=== PATIENT | female | born 1940 | race Caucasian/White ===

== ENCOUNTER 2019-08-16 09:28 | Emergency (ER) | payer MEDICARE, BC, SELFPAY ==
[2019-08-16 09:42] VITALS: BP 146/94; PULSE 87; RESP 20; TEMP 36.7; O2SAT 93; BMI 44.1
--- NOTE | 2019-08-16 10:00 | ED_ITS ---
Entered by Qian Wallis, acting as scribe for Aug 16, 2019 09:28 HPI - SOB/Dyspnea General: Chief Complaint: Shortness of Breath/Dyspnea Stated Complaint: SWELLING IN LEGS AND FEET Time Seen by Provider: 08/16/19 09:58 Source: patient and family Mode of arrival: ambulatory Limitations: no limitations History of Present Illness: HPI Narrative: 78 yo female presents with bilateral leg swelling. pt states she is not short of breath. pt has to take lasik to help with edema. pt states it is worsening with exertion and sitting upright makes this better. pt denies any other symptoms at this time. Onset (ago): day(s) (today) Context: occurred during exertion Timing: constant and progressively worsening Severity: moderate Exacerbating factors: exertion Relieving factors: nothing Associated symptoms: Reports no associated symptoms Treatment prior to arrival: oxygen Related Data: Home oxygen amount: 4 liters (at home) PFS ED PFSH: Statuses (acute, chronic, etc) shown below reflect problem list status as previously entered and may not be historically accurate Social History Smoking and tobacco status: former smoker Course Vital Signs: Vital signs: Vital Signs Temperature 98.1 F 08/16/19 09:42 Pulse Rate 71 08/16/19 11:30 Respiratory Rate 16 08/16/19 11:30 Blood Pressure 139/70 08/16/19 11:30 Pulse Oximetry 97 08/16/19 11:30 MDM - SOB/Dyspnea Lab Data: Labs: Lab Results 08/16/19 08/16/19 Range/Units 10:25 10:25 WBC 16.5 H (4.0-10.0) 10^3/ uL RBC 4.39 (4.1-5.3) 10^6/u L Hgb 13.6 (11.5-15.3) g/dL Hct 41.9 (37.0-47.0) % MCV 95.4 (81-99) fL MCH 31.0 (28.0-34.0) pg MCHC 32.5 (30.0-36.0) g/dL RDW 11.5 L (12.1-15.1) % Plt Count 346 (130-400) 10^3/c mm MPV 10.4 (7.4-10.4) fL Neut % (Auto) 74.7 % Lymph % (Auto) 14.8 % [place] % (Auto) 7.5 % Eos % (Auto) 1.6 % Baso % (Auto) 0.5 % Neut # (Auto) 12.3 H (1.8-7.7) 10^3/u L Lymph # (Auto) 2.4 (0.8-4.8) 10^3/u L [place] # (Auto) 1.2 H (0.2-0.9) 10^3/u L Eos # (Auto) 0.3 (0.0-0.8) 10^3/u L Baso # (Auto) 0.1 (0.0-0.1) 10^3/u L Nucleated RBC % (a uto) 0 % Nucleated RBCs # 0.0 /100WBC Sodium 134 L (136-145) mmol/L Potassium 3.3 L (3.5-5.1) mmol/L Chloride 87 L (98-107) mmol/L Carbon Dioxide 36 H (22-29) mmol/L Anion Gap 14.3 (5-19) BUN 20 (8-23) mg/dL Creatinine 1.0 H (0.5-0.9) mg/dL Glucose 207 H (74-106) mg/dL Calcium 10.6 H (8.5-10.5) mg/dL Total Bilirubin 0.4 (0.15-1.2) mg/dL AST 18 (0-32) U/L ALT 6 (0-33) U/L Alkaline Phosphata se 62 (35-105) IU/L NT-Pro-B Natriuret Pep 67 (0-450) pg/mL Total Protein 7.9 (6.6-8.7) g/dL Albumin 4.3 (3.5-5.2) g/dL Globulin 3.6 (1.3-4.6) g/dL Discharge Plan Discharge Patient Disposition: Home, Self-Care Clinical Impression: Edema of both lower extremities due to peripheral venous insufficiency Condition: Stable Prescriptions: New Lasix 20 mg tablet 20 mg PO DAILY Qty: 7 RF: 0 potassium chloride 20 mEq tablet extended release 20 meq PO DAILY Qty: 7 RF: 0 No Action tramadol-acetaminophen 37.5-325 mg tablet 1 - 2 tab PO TID PRN (Reason: Pain) RF: 0 lisinopril 20 mg tablet 20 mg PO DAILY RF: 0 chlorthalidone 25 mg tablet 25 mg PO DAILY RF: 0 famotidine 20 mg tablet 20 mg PO BID RF: 0 levothyroxine [Synthroid] 200 mcg tablet 200 mcg PO DAILY RF: 0 rosuvastatin 10 mg tablet 10 mg PO DAILY RF: 0 Multiple Vitamins Tablet 1 tab PO DAILY RF: 0 vitamin E 1,000 unit Capsule 1,000 unit PO DAILY RF: 0 Vitamin B-12 1,000 mcg Tablet 1,000 mcg PO DAILY RF: 0 Aspir-81 81 mg Tablet,Delayed Release (Dr/Ec) 81 mg PO DAILY RF: 0 Tylenol Arthritis Pain 650 mg Tablet Extended Release 1,300 mg PO TID PRN (Reason: Pain) RF: 0 Calcium 500 500 mg calcium (1,250 mg) Tablet 500 mg PO DAILY RF: 0 Vitamin B-6 100 mg Tablet 50 mg PO DAILY RF: 0 Discharge Orders: Discharge Order (Routine); Ordered 08/16/19 Ordered By: Ulysses Vincent Referrals: Ruben Rodriguez MD [Family Provider] - Coding Level of Care Code 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
[2019-08-16 10:05] VITALS: BP 150/93; RESP 19; O2SAT 96
--- NOTE | 2019-08-16 10:10 | XR_ITS ---
WS: [id number] CHEST XRAY TECHNIQUE: Portable chest. CLINICAL INFORMATION: orthopnea COMPARISON: FINDINGS: Heart: Cardiomegaly. Aortic Calcification. Tortuous thoracic aorta. Lungs: Chronic emphysematous changes. No acute-appearing pulmonary infiltrates. Bones: Chronic healed left rib fractures with callus formation. Hypertrophic changes thoracic spine. XR/XR chest 1V portable [id number] IMPRESSION: 1. Cardiomegaly. 2. Chronic emphysematous changes. No acute pulmonary infiltrates.
[2019-08-16 10:33] LABS: Basophils # 0.1 10^3/uL (0.0-0.1); Basophils % 0.5 %; Eosinophils # 0.3 10^3/uL (0.0-0.8); Eosinophils % 1.6 %; Hematocrit 41.9 % (37.0-47.0); Hemoglobin 13.6 g/dL (11.5-15.3); Lymphocytes # 2.4 10^3/uL (0.8-4.8); Lymphocytes % 14.8 %; Mean Corpuscular HGB Conc 32.5 g/dL (30.0-36.0); Mean Corpuscular Volume 95.4 fL (81-99); Mean Platelet Volume 10.4 fL (7.4-10.4); Monocytes # 1.2 10^3/uL (0.2-0.9); Monocytes % 7.5 %; Neutrophils # 12.3 10^3/uL (1.8-7.7); Neutrophils % 74.7 %; Nucleated Red Blood Cells % 0 %; Platelet Count 346 10^3/cmm (130-400); Red Blood Count 4.39 10^6/uL (4.1-5.3); Red Cell Distribution Width 11.5 % (12.1-15.1); White Blood Count 16.5 10^3/uL (4.0-10.0)
[2019-08-16 11:00] LABS: Alanine Aminotransferase 6 U/L (0-33); Albumin Level 4.3 g/dL (3.5-5.2); Alkaline Phosphatase 62 IU/L (35-105); Anion Gap 14.3 (5-19); Aspartate Amino Transferase 18 U/L (0-32); Blood Urea Nitrogen 20 mg/dL (8-23); Calcium 10.6 mg/dL (8.5-10.5); Carbon Dioxide 36 mmol/L (22-29); Chloride 87 mmol/L (98-107); Globulin 3.6 g/dL (1.3-4.6); Glucose 207 mg/dL (74-106); NT Pro B Type Natriuretic Pept 67 pg/mL (0-450); Potassium 3.3 mmol/L (3.5-5.1); Sodium 134 mmol/L (136-145); Total Bilirubin 0.4 mg/dL (0.15-1.2); Total Protein 7.9 g/dL (6.6-8.7)
--- NOTE | 2019-08-16 11:09 | PC.NURSE ---
Patient resting quietly, denies any needs at this time. Updated on waiting for completion of labs.
[2019-08-16 11:10] VITALS: BP 135/67; PULSE 80; RESP 16; O2SAT 98
[2019-08-16 11:30] VITALS: BP 139/70; PULSE 71; RESP 16; O2SAT 97
[2019-08-16 12:27] VITALS: BP 139/70; PULSE 80; RESP 17; TEMP 36.9; O2SAT 97
== END 2019-08-16 12:00 | disposition home or self-care (01) ==
PROVIDERS: Emergency Provider Family Medicine; Family Provider Family Medicine
DX: R60.0 Localized edema (principal); I87.2 Venous insufficiency (chronic) (peripheral); Z79.82 Long term (current) use of aspirin; Z87.891 Personal history of nicotine dependence; Z99.81 Dependence on supplemental oxygen
CPT/HCPCS: 36415; 71045; 80053; 83880; 85025; 99282; 99284

== ENCOUNTER 2020-04-24 20:51 | Observation (INO) | payer MEDICARE, BC, SELFPAY ==
[2020-04-24 21:19] VITALS: BP 115/61; PULSE 96; RESP 18; TEMP 36.6; O2SAT 94; BMI 49.9
--- NOTE | 2020-04-24 21:19 | XRR_ITS ---
PROCEDURE INFORMATION: Exam: XR Pelvis Exam date and time: 04/24/2020 9:47 PM Age: 79 years old Clinical indication: Pain and injury or trauma; Fall; Blunt trauma (contusions or hematomas); Does not apply; Pelvic region; Pelvic pain; Injury date: 04/23/20 TECHNIQUE: Imaging protocol: XR pelvis. Views: 1 or 2 view. COMPARISON: No relevant prior studies available. FINDINGS: Bones/joints: Degenerative arthritis of both hips. Degenerative change of lower lumbar spine. No acute fracture visible. Soft tissues: Unremarkable. XR/XR pelvis 1-2V* [id number] IMPRESSION: No acute osseous abnormality.
--- NOTE | 2020-04-24 21:19 | XRR_ITS ---
PROCEDURE INFORMATION: Exam: XR Chest, 1 View Exam date and time: 04/24/2020 9:49 PM Age: 79 years old Clinical indication: Injury or trauma; Fall; Blunt trauma (contusions or hematomas); Injury date: 04/23/20; Prior surgery; Surgery type: Breast biopsy TECHNIQUE: Imaging protocol: XR of the chest Views: 1 view. COMPARISON: No relevant prior studies available. FINDINGS: Lungs: Unremarkable. No consolidation. Pleural space: Unremarkable. No pleural effusion. No pneumothorax. Heart/Mediastinum: Cardiomegaly. Vasculature: Calcified thoracic aorta. Bones/joints: Degenerative change of the spine. Degenerative change of both shoulders. XR/XR chest 1V portable [id number] IMPRESSION: No acute cardiopulmonary process.
--- NOTE | 2020-04-24 21:21 | ECG_ITS ---
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 Measurements Intervals [place] Rate: 87 P: 59 [place]: 159 QRS: 104 QRSD: 160 T: -50 QT: 371 QTc: 447 Interpretive Statements SINUS RHYTHM RIGHT AXIS DEVIATION [QRS AXIS > 100] RIGHT BUNDLE BRANCH BLOCK [120+ ms QRS DURATION, UPRIGHT V1, 40+ ms S IN I/aVL/V4/V5/V6] SEPTAL MYOCARDIAL INFARCTION , OF INDETERMINATE AGE [40+ ms Q WAVE IN V1/V2] MODERATE T-WAVE ABNORMALITY, CONSIDER LATERAL ISCHEMIA [-0.1+ mV T WAVE IN I/aVL/V5/V6] MODERATE T-WAVE ABNORMALITY, CONSIDER INFERIOR ISCHEMIA [-0.1+ mV T WAVE IN II/aVF] No previous ECG available for comparison Electronically Signed On 04-26-2020 20:36:59 CDT by Aaron Bruno M.D. [id number]
[2020-04-24 21:23] VITALS: BP 115/61; PULSE 82; RESP 20; O2SAT 97
[2020-04-24] MEDS: sodium chloride 0.9% 1,000 ML 100 ML IV (22:16)
[2020-04-24 22:21] LABS: Basophils # 0.1 10^3/uL (0.0-0.1); Basophils % 0.5 %; Eosinophils # 0.3 10^3/uL (0.0-0.8); Eosinophils % 1.5 %; Hematocrit 44.5 % (37.0-47.0); Hemoglobin 13.3 g/dL (11.5-15.3); Lymphocytes # 1.2 10^3/uL (0.8-4.8); Lymphocytes % 7.2 %; Mean Corpuscular HGB Conc 29.9 g/dL (30.0-36.0); Mean Corpuscular Hemoglobin 28.3 pg (28.0-34.0); Mean Corpuscular Volume 94.7 fL (81-99); Mean Platelet Volume 11.1 fL (7.4-10.4); Monocytes # 0.9 10^3/uL (0.2-0.9); Monocytes % 5.2 %; Neutrophils # 14.38 10^3/uL (1.8-7.7); Neutrophils % 84.7 %; Nucleated Red Blood Cells % 0 %; Platelet Count 315 10^3/cmm (130-400); Red Cell Distribution Width 13.9 % (12.1-15.1)
[2020-04-24 22:23] VITALS: BP 127/53; PULSE 84; RESP 18; O2SAT 98
[2020-04-24 22:25] LABS: Bilirubin Urine Neg (Negative); Blood Urine Neg (Negative); Glucose Urine UA Norm (Normal); Ketones Urine Negative (Negative); Leukocyte Esterase Urine Negative (Negative); Nitrate Urine Negative (Negative); Protein Urine 2+ (Negative); Urine Appearance Clear (CLEAR); Urine Color Yellow (Yellow); Urobilinogen Urine Norm (Negative); pH Urine 5 (5-7)
[2020-04-24 22:27] LABS: Add Urine Culture? No; Amorphous Sediment Urine 2+ /hpf; Bacteria Urine 1+ /hpf; Mucus Urine TRACE /hpf; RBC Urine 0-4 /hpf (0-2); Squamous Epithelial Cell Urine 0-4 /hpf (0-5); WBC Urine 0-4 /hpf (0-5)
[2020-04-24 22:35] LABS: Ketone (Acetest) Serum Negative (Negative)
[2020-04-24 22:36] LABS: Alanine Aminotransferase 10 U/L (0-33); Albumin Level 3.6 g/dL (3.5-5.2); Alkaline Phosphatase 58 IU/L (35-105); Anion Gap 11.9 (5-19); Aspartate Amino Transferase 18 U/L (0-32); Blood Urea Nitrogen 19 mg/dL (8-23); Calcium 9.2 mg/dL (8.5-10.5); Carbon Dioxide 37 mmol/L (22-29); Chloride 88 mmol/L (98-107); Creatine Phosphokinase 98 U/L (26-192); Globulin 3.2 g/dL (1.3-4.6); Glucose 149 mg/dL (65-115); Osmolality Calculated 281 mOsm/kg (285-295); Potassium 3.9 mmol/L (3.5-5.1); Sodium 133 mmol/L (136-145); Total Bilirubin 0.4 mg/dL (0.15-1.2); Total Protein 6.8 g/dL (6.6-8.7)
[2020-04-24 22:37] LABS: Lactic Sepsis W/Reflex 0.7 mmol/L (0.5-2.2); Troponin(5th) Baseline 93 ng/L (0-10)
--- NOTE | 2020-04-24 23:21 | ECG_ITS ---
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 Measurements Intervals [place] Rate: 82 P: 61 [place]: 167 QRS: 103 QRSD: 165 T: -48 QT: 394 QTc: 461 Interpretive Statements SINUS RHYTHM RIGHT AXIS DEVIATION [QRS AXIS > 100] RIGHT BUNDLE BRANCH BLOCK [120+ ms QRS DURATION, UPRIGHT V1, 40+ ms S IN I/aVL/V4/V5/V6] MODERATE T-WAVE ABNORMALITY, CONSIDER LATERAL ISCHEMIA [-0.1+ mV T WAVE IN I/aVL/V5/V6] MODERATE T-WAVE ABNORMALITY, CONSIDER INFERIOR ISCHEMIA [-0.1+ mV T WAVE IN II/aVF] Compared to ECG 04/24/2020 21:58:42 Myocardial infarct finding no longer present T-wave abnormality still present Possible ischemia still present Electronically Signed On 04-26-2020 20:54:57 CDT by Aaron Bruno M.D. [email or web address]
[2020-04-24 23:40] VITALS: BP 109/66; PULSE 86; O2SAT 98
--- NOTE | 2020-04-24 23:46 | P.HP_ITS ---
Providers/Chief Complaint Primary Care Provider: Ruben Rodriguez MD Chief Complaint: FALL History of Present Illness Deja Russell is a 79 year old female, who carries diagnosis of primary hypertension, sleep apnea, hypothyroidism, poor functional status, dependent on her for daily activities, came in after sustaining a fall at home. Patient is stating that mostly she requires chairlift to get up because her is also 79 years old and is not able to help her anymore. Last night her was not at home and she could not find chairlift. She struggled to get up when she was trying to go towards the bathroom, she was very upset and was trying to shields towards the bathroom when she tripped over, lost her balance and fell on the ground. Her returned and try to get her up but was unsuccessful hence EMS was called. She was sent to the hospital for further evaluation for investigation of her fall. Patient is denying chest pain, fever, nausea, vomiting, recent diarrhea, cough, seizure-like activities, syncope. She is leading a sedentary lifestyle. She was to go to the bathroom on her own out of fear of falling because of her balance issues. Diagnosis in the ER revealed leukocytosis, sodium 133, glucose 149, , troponin 93, EKG does not show any signs of ischemia or infarction, right bundle branch block with left posterior fascicular block pattern which is old, serum ketones negative, patient is stating that she is too weak to go home because her is not able to care for her at all, we do not have a source of such high troponin, I have requested D-dimer Review of Systems Const: Reports: body aches and fatigue; Denies: fever(s) or chills Eyes: Denies: change in vision ENMT: Denies: throat pain Card: Reports: pre-syncope and dyspnea on exertion; Denies: chest pain, swelling of feet/ankles, syncope or orthopnea Resp: Denies: dyspnea GI: Denies: abdominal pain, nausea or vomiting : Denies: flank pain Musc: Denies: neck pain Skin/Breast: Reports: lesions and changes in skin color Neuro: Reports: difficulty walking; Denies: headache(s) Psych: Reports: irritability; Denies: anxiety Endo: Denies: polyuria [place]/Lymph: Denies: easy bruising All/Imm: Denies: urticaria Medications/Allergies Home Medications Medication Instructions Recorded Confirmed Last Taken Type acetaminophen [Tylenol Arthritis 1,300 mg PO TID PRN 08/16/19 08/16/19 08/14/19 History Pain] aspirin [Aspir-81] 81 mg PO DAILY 08/16/19 08/16/19 08/15/19 History calcium carbonate [Calcium 500] 500 mg PO DAILY 08/16/19 08/16/19 08/16/19 History chlorthalidone 25 mg PO DAILY 08/16/19 08/16/19 08/16/19 History cyanocobalamin (vitamin B-12) 1,000 mcg PO DAILY 08/16/19 08/16/19 08/16/19 History [Vitamin B-12] famotidine 20 mg PO BID 08/16/19 08/16/19 08/16/19 History levothyroxine [Synthroid] 200 mcg PO DAILY 08/16/19 08/16/19 08/14/19 History lisinopril 20 mg PO DAILY 08/16/19 08/16/19 08/16/19 History multivitamin [Multiple Vitamins] 1 tab PO DAILY 08/16/19 08/16/19 08/16/19 History potassium chloride 20 meq PO DAILY #7 tab 08/16/19 Unknown Rx pyridoxine (vitamin B6) [Vitamin 50 mg PO DAILY 08/16/19 08/16/19 08/16/19 History B-6] rosuvastatin 10 mg PO DAILY 08/16/19 08/16/19 08/15/19 History tramadol-acetaminophen 1 - 2 tab PO TID PRN 08/16/19 08/16/19 08/16/19 06:00 History vitamin E 1,000 unit PO DAILY 08/16/19 08/16/19 08/16/19 History furosemide [Lasix] 20 mg PO DAILY 04/25/20 04/25/20 Unknown History Allergies Allergy/AdvReac Type Severity Reaction Status Date / Time Penicillins Allergy ALGY-Rash Verified 04/24/20 21:23 PFSH Acute PFSH: Medical History Congestive heart failure COPD (chronic obstructive pulmonary disease) CVA (cerebral vascular accident) Dyslipidemia Hypertension Hypothyroidism Irritable bowel syndrome Peptic ulcer disease Pulmonary hypertension Surgical History H/O total hysterectomy S/P breast biopsy S/P cholecystectomy Family History Other Mesothelioma Social History Smoking and tobacco status: former smoker Alcohol intake: never Substance/Drug Use: never Household members: spouse Housing: House Vitals/I&O/Wt Last Vital Signs Temp 97.9 F 04/24/20 21:19 Pulse 86 04/24/20 23:40 Resp 18 04/24/20 22:23 BP 109/66 04/24/20 23:40 Pulse Ox 98 04/24/20 23:40 Weight last 48 hrs Weight 136.078 kg Physical Exam Narrative: EXAM NARRATIVE: Cooperative elderly female Morbidly obese No active respiratory distress EOMI, PERRLA S1, S2 no tachycardia, Clinically looks dehydrated Skin is extremely dry, no active signs of fluid overload Skin wrinkling of lower extremities, Venous stasis dermatitis Abdomen distended, bowel sound present Lungs are clear to auscultation EOMI, PERRLA No neurological deficit Dry skin with poor hygiene Strength of lower extremities 3/5 as compared to 4/5 of lower extremities No focal deficit Appropriate mood and affect Urinary Catheter Management^: Jackson: Cath Placed During This Visit: yes Reason for Continuing Indwelling Catheter: Required Immobilization for Trauma or Surgery or Anesthesia Urinary Catheter Date of Insertion: 04/24/20 Urinary Catheter Time of Insertion: 21:46 Data : 04/24/20 22:07 04/24/20 22:07 A&P Assessment and plan (1) Generalized weakness: Status: Acute (2) Inability to walk: Status: Acute (3) Accident due to mechanical fall without injury: Status: Acute (4) Troponin level elevated: Status: Acute Additional A&P Information Mechanical fall Secondary to deconditioning, morbid obesity EKG did not show ischemic or infarctive changes, right bundle branch with left posterior fascicle block pattern Troponin 93, I do not have good reason for such a high troponin, will check D- dimer, serial troponin and EKG currently chest pain-free Inability to walk secondary to morbid obesity Patient is using chairlift in order to change positions, sedentary lifestyle, dependent on her for daily activities, she might benefit from home he alth services We will check B12 level and A1c Hypothyroidism: Continue levothyroxine 200 mcg, check TSH Mild hyponatremia which seems secondary to chlorthalidone Holding chlorthalidone for now along Lasix Patient is getting fluids resuscitation for clinical signs of dehydration DVT prophylaxis Lovenox Cardiac diet Full code Attestations Medical Necessity Statement*: Anticipating discharge in less than 48 hours, she will benefit from home health services for her physical deconditioning, her is not able to take care of her he is 81 years old Time Spent in Patient Care: (>than 50% of time spent in counselling and/or direct pt care on unit) . 50mins Coding Level of Care Code Acute Sharepoint Application Developer for Chg Fwd Diagnoses Generalized weakness R53.1 Inability to walk R26.2 Accident due to mechanical fall without injury W19.XXXA Troponin level elevated R77.8
--- NOTE | 2020-04-24 23:46 | W.ED.FALL ---
HPI - Fall General: Chief Complaint: Fall Stated Complaint: FALL Time Seen by Provider: 04/24/20 21:19 Source: patient, family and EMS Mode of arrival: EMS Limitations: no limitations History of Present Illness: HPI Narrative: Mrs. Flood is a very nice 79-year-old female who states tonight she was at home when she went to sit on the commode and missed the toilet and went to the ground. She laid on the ground for over an hour and was too weak to get up. Patient states she has had increasing weakness as of late. She denies any headache, chest pain, back pain, abdominal pain, shortness of breath, fever or other complaint. Patient states that she has had increasing weakness and tonight it culminated in the fact that she could not get up and her could not lift her up. EMS was called and loaded her onto the cot and brought her here to the hospital for evaluation. Patient is denying any injuries from going to the ground and she states it was just a gradual slide without injury. Patient has no other complaints other than that of generalized weakness. She also states that at this time she is too weak to walk as well. Associated symptoms-after fall: Denies abdominal pain, chest pain, confusion, difficulty walking, headache(s), hematuria, lightheadedness, neck pain or vertigo Review of Systems Const: Reports: other (Generalized weakness); Denies: fever(s), chills, body aches, fatigue, malaise or diaphoresis Eyes: Denies: change in vision, blurry vision, photophobia, eye discomfort, eye discharge, eye redness or yellow eyes ENMT: Denies: throat pain, odynophagia, hoarseness, swelling of lips/tongue, ear or mastoid pain, ear discharge, change in hearing or nasal discharge Card: Denies: chest pain, palpitations, irregular heart rhythm, edema, lightheadedness, syncope, pre-syncope, dyspnea on exertion or orthopnea Resp: Denies: dyspnea, productive cough, non-productive cough, wheezing, hemoptysis or chest congestion GI: Denies: abdominal pain, nausea, vomiting, hematemesis, coffee ground emesis, heartburn, diarrhea, constipation, GI cramping, hematochezia or melena : Denies: flank pain, dysuria, urinary frequency, urinary urgency or hematuria Musc: Denies: neck pain, back pain, extremity pain, extremity swelling, joint pain, joint swelling, joint redness, joint warmth or joint stiffness Skin/Breast: Denies: rash, pruritus, erythema, skin pain or skin tenderness Neuro: Denies: headache(s), numbness in extremities, weakness in extremities, sensory changes, lack of coordination, difficulty walking, dizziness, vertigo, confusion, Slurred speech present or seizure-like activity Alpesh/Lymph: Denies: easy bruising, easy bleeding, petechiae, purpura or enlarged lymph nodes All/Imm: Denies: urticaria, throat swelling, tongue swelling, facial swelling or acute wheezing PFSH ED PFSH: Medical History Congestive heart failure COPD (chronic obstructive pulmonary disease) CVA (cerebral vascular accident) Dyslipidemia Hypertension Hypothyroidism Irritable bowel syndrome Peptic ulcer disease Pulmonary hypertension Surgical History H/O total hysterectomy S/P breast biopsy S/P cholecystectomy Family History Other Mesothelioma Social History Smoking and tobacco status: former smoker Alcohol intake: never Substance/Drug Use: never Household members: spouse Housing: House Physical Exam Const: COMMON NORMALS: no acute distress, patient oriented x3, no limitations and alert GENERAL APPEARANCE: cooperative HENMT: COMMON NORMALS: normocephalic, atraumatic, external ears normal, EAC's normal and Normal external nose present HEAD & SCALP: normal to inspection, normocephalic and atraumatic FACE & SINUS: normal facial exam and face symmetric NOSE: Normal external nose present and Normal nares present EXTERNAL EAR: Yes external ears normal EXTERNAL AUDITORY CANAL: EAC's normal MOUTH: Normal oral and palatal mucosa present, lip normal and tongue normal Eye: COMMON NORMALS: Equal, round and reactive pupils present and conjunctivae normal GENERAL EYE: appearance normal, both eyes and all related structures ALIGNMENT: Yes alignment normal PERIORBITAL: periorbital findings normal EYELID: eyelids normal CONJUNCTIVA: Yes conjunctivae normal SCLERA: sclerae normal PUPIL: Yes Equal, round and reactive pupils present Neck/C-Spine: COMMON NORMALS: full ROM, no lymphadenopathy, supple, no meningeal signs and no JVD GENERAL: Yes normal visual inspection and Yes trachea midline Chest: COMMONS NORMALS: normal inspection of the chest and normal palpation of entire chest wall Resp: COMMON NORMALS: normal respiratory effort, No retractions, No use of accessory muscles and clear to auscultation bilaterally EFFORT & INSPECTION: Yes able to speak in complete sentences and Yes symmetric chest movement AUSCULTATION: clear to auscultation bilaterally, no crackles, no rales, no rhonchi and no wheezes Cardio: COMMON NORMALS: no JVD, regular rate, regular rhythm, S1 normal heart sound present and S2 normal heart sound present RATE: regular rate RHYTHM: regular rhythm HEART SOUNDS: S1 normal heart sound present, S2 normal heart sound present, no click, no gallops, no murmurs and no rubs GI: COMMON NORMALS: Soft to palpation and No hepatosplenomegaly present PALPATION: Yes Soft to palpation, No Tenderness to palpation present (GI), No Guarding due to palpation present (GI), No Rigid due to palpation, Yes No hepatosplenomegaly present, No Hernia present, No Palpable mass present and No Pulsatile mass present : COMMON NORMALS: Yes no CVA tenderness BLADDER/KIDNEY EXAM: Yes no CVA tenderness EXTERNAL FEMALE EXAM: No Hernia present Back/Pelvis: COMMON NORMALS: no CVA tenderness, thoracic and lumbar spine normal to inspection, no thoracic nor lumbar tenderness and thoraco-lumbar ROM normal Extremity: COMMON NORMALS: normal to inspection, full ROM, capillary refill normal, no joint enlargement, no clubbing, cyanosis or edema and no calf tenderness Neuro: COMMON NORMALS: patient oriented x3, CN's II-XII intact bilaterally, moves all extremities, no focal motor deficits and no sensory deficits noted SENSORIUM/ORIENTATION: Yes alert MENINGEAL SIGNS: Yes no meningeal signs SPEECH: speech normal Psych: COMMON NORMALS: mental status grossly normal, Normal thought process present, cooperative, normal affect, speech normal and activity/motor behavior normal SPEECH: Yes normal speech THOUGHT PROCESS: Normal thought process present Skin: COMMON NORMALS: no rashes or lesions noted, turgor normal, no jaundice, no petechiae and no mottling GENERAL SKIN EXAM: no rashes or lesions noted and turgor normal Course Vital Signs: Vital signs: Vital Signs Temperature 97.9 F 04/24/20 21:19 Pulse Rate 82 04/25/20 01:47 Respiratory Rate 18 04/25/20 01:47 Blood Pressure 108/60 04/25/20 01:47 Pulse Oximetry 96 04/25/20 01:47 MDM - Fall MDM Narrative: Medical decision making narrative: The patient is morbidly obese and appears to be chronically ill but tonight has increased weakness to the point she cannot ambulate or even raise her cell from the ground. She does appear mildly dehydrated. I reviewed the case in full with Dr. Blackman who agrees to evaluate the patient further. This time she does have an elevated troponin but she has no chest pain or shortness of breath. Her EKG has a bundle branch block which was not amenable to ruling out acute coronary ischemia. Again the patient has no chest pain at this time. Lab Data: Labs: Lab Results 04/24/20 04/24/20 04/24/20 Range/Units 22:03 22:07 22:07 WBC 17.0 H (4.0-10.0) 10^3/ uL RBC 4.70 (4.1-5.3) 10^6/u L Hgb 13.3 (11.5-15.3) g/dL Hct 44.5 (37.0-47.0) % MCV 94.7 (81-99) fL MCH 28.3 (28.0-34.0) pg MCHC 29.9 L (30.0-36.0) g/dL RDW 13.9 (12.1-15.1) % Plt Count 315 (130-400) 10^3/c mm MPV 11.1 H (7.4-10.4) fL Neut % (Auto) 84.7 % Lymph % (Auto) 7.2 % [place] % (Auto) 5.2 % Eos % (Auto) 1.5 % Baso % (Auto) 0.5 % Neut # (Auto) 14.38 H (1.8-7.7) 10^3/u L Lymph # (Auto) 1.2 (0.8-4.8) 10^3/u L [place] # (Auto) 0.9 (0.2-0.9) 10^3/u L Eos # (Auto) 0.3 (0.0-0.8) 10^3/u L Baso # (Auto) 0.1 (0.0-0.1) 10^3/u L Nucleated RBC % (a uto) 0 % Nucleated RBCs # 0.0 /100WBC PT (12.1-14.9) SECO NDS INR (0.8-1.2) Sodium 133 L (136-145) mmol/L Potassium 3.9 (3.5-5.1) mmol/L Chloride 88 L (98-107) mmol/L Carbon Dioxide 37 H (22-29) mmol/L Anion Gap 11.9 (5-19) BUN 19 (8-23) mg/dL Creatinine 0.7 (0.5-0.9) mg/dL GFR Calculation Not Reportable Glucose 149 H (65-115) mg/dL Calculated Osmolal ity 281 L (285-295) mOsm/k g Lactic Acid (0.5-2.2) mmol/L Calcium 9.2 (8.5-10.5) mg/dL Total Bilirubin 0.4 (0.15-1.2) mg/dL AST 18 (0-32) U/L ALT 10 (0-33) U/L Alkaline Phosphata se 58 (35-105) IU/L Creatine Kinase 98 (26-192) U/L Troponin T Baselin e (0-10) ng/L Total Protein 6.8 (6.6-8.7) g/dL Albumin 3.6 (3.5-5.2) g/dL Globulin 3.2 (1.3-4.6) g/dL Urine Color Yellow (Yellow) Urine Appearance Clear (CLEAR) Urine pH 5 (5-7) Ur Specific Gravit y 1.020 (1.005-1.030) Urine Protein 2+ H (Negative) Urine Glucose (UA) Norm (Normal) Urine Ketones Negative (Negative) Urine Blood Neg (Negative) Urine Nitrate Negative (Negative) Urine Bilirubin Neg (Negative) Urine Urobilinogen Norm (Negative) mg/dL Ur Leukocyte Shazia ase Negative (Negative) Urine RBC 0-4 H (0-2) /hpf Urine WBC 0-4 H (0-5) /hpf Ur Squamous Epith Cells 0-4 H (0-5) /hpf Amorphous Sediment 2+ /hpf Urine Bacteria 1+ H (NONE) /hpf Hyaline Casts 5-10 H /lpf Urine Mucus Trace /hpf Serum Ketones Negative (Negative) 04/24/20 04/24/20 04/24/20 Range/Units 22:07 22:07 22:07 WBC (4.0-10.0) 10^3/ uL RBC (4.1-5.3) 10^6/u L Hgb (11.5-15.3) g/dL Hct (37.0-47.0) % MCV (81-99) fL MCH (28.0-34.0) pg MCHC (30.0-36.0) g/dL RDW (12.1-15.1) % Plt Count (130-400) 10^3/c mm MPV (7.4-10.4) fL Neut % (Auto) % Lymph % (Auto) % [place] % (Auto) % Eos % (Auto) % Baso % (Auto) % Neut # (Auto) (1.8-7.7) 10^3/u L Lymph # (Auto) (0.8-4.8) 10^3/u L [place] # (Auto) (0.2-0.9) 10^3/u L Eos # (Auto) (0.0-0.8) 10^3/u L Baso # (Auto) (0.0-0.1) 10^3/u L Nucleated RBC % (a uto) % Nucleated RBCs # /100WBC PT 13.50 (12.1-14.9) SECO NDS INR 1.00 (0.8-1.2) Sodium (136-145) mmol/L Potassium (3.5-5.1) mmol/L Chloride (98-107) mmol/L Carbon Dioxide (22-29) mmol/L Anion Gap (5-19) BUN (8-23) mg/dL Creatinine (0.5-0.9) mg/dL GFR Calculation Glucose (65-115) mg/dL Calculated Osmolal ity (285-295) mOsm/k g Lactic Acid 0.7 (0.5-2.2) mmol/L Calcium (8.5-10.5) mg/dL Total Bilirubin (0.15-1.2) mg/dL AST (0-32) U/L ALT (0-33) U/L Alkaline Phosphata se (35-105) IU/L Creatine Kinase (26-192) U/L Troponin T Baselin e 93 H (0-10) ng/L Total Protein (6.6-8.7) g/dL Albumin (3.5-5.2) g/dL Globulin (1.3-4.6) g/dL Urine Color (Yellow) Urine Appearance (CLEAR) Urine pH (5-7) Ur Specific Gravit y (1.005-1.030) Urine Protein (Negative) Urine Glucose (UA) (Normal) Urine Ketones (Negative) Urine Blood (Negative) Urine Nitrate (Negative) Urine Bilirubin (Negative) Urine Urobilinogen (Negative) mg/dL Ur Leukocyte Shazia ase (Negative) Urine RBC (0-2) /hpf Urine WBC (0-5) /hpf Ur Squamous Epith Cells (0-5) /hpf Amorphous Sediment /hpf Urine Bacteria (NONE) /hpf Hyaline Casts /lpf Urine Mucus /hpf Serum Ketones (Negative) Imaging Data^: CXR: Attestation: I personally reviewed and interpreted this imaging study as follows: My impression: No acute cardiopulmonary findings. Cardiomegaly. Pelvis: Attestation: I personally reviewed and interpreted this imaging study as follows: My impression: No acute fractures or dislocations. EKG Data^: EKG 1: Attestation: I personally reviewed and interpreted this EKG as follows: EKG interpretation date: 04/25/20 EKG interpretation time: 21:58 Interpretation: Normal sinus rhythm at 87 beats a minute, right bundle branch block, no acute ST-T wave changes. Old tracing unavailable for review. EKG 2: Attestation: I personally reviewed and interpreted this EKG as follows: EKG interpretation date: 04/25/20 EKG interpretation time: 23:25 Interpretation: Normal sinus rhythm at 82 beats a minute, right bundle branch block, unchanged from previous. Discharge Plan Discharge Patient Disposition: Admitted As Inpatient Admit Provider: Antionette Blackman Clinical Impression: Generalized weakness, Inability to walk Condition: Stable Discharge Date/Time: 04/25/20 01:20 Coding Level of Care Code ED Patented Hogshead Assembler for Chg Fwd Exam Comprehensive
[2020-04-25] VITALS (8 sets, daily range): BP systolic 103–138; BP diastolic 59–73; PULSE 70–86; RESP 16–18; TEMP 36.6–36.9; O2SAT 93–99
[2020-04-25] MEDS: sodium chloride 0.9% 1,000 ML 100 ML IV (00:26)
--- NOTE | 2020-04-25 00:59 | PC.NURSE ---
vo from Dr Arrooy to remove indwelling catheter. Pt states she rather have the indwelling catheter remain in place since she is not sure how steady she will be on her feet. Dr Blackman informed of pt's decision. After consult, Dr Blackman gave verbal order to remove indwelling catheter. Pt also consents to catheter removal. KATHE Arnold on Med Surg floor notified of catheter removal and of amy for bedside commode with increased fall risk
--- NOTE | 2020-04-25 01:08 | PC.NURSE ---
catheter removed without difficulites
[2020-04-25 01:21] LABS: Troponin 5 2HR 87.62 ng/L (0-10)
[2020-04-25 01:29] LABS: Troponin 5 2HR Delta -5.38 ABS# (0-10)
[2020-04-25] MEDS: nystatin powder 15 gm Btl 1 APPLIC TOPICAL ×2 (02:13→17:37)
[2020-04-25 02:16] LABS: D Dimer 1.05 ug/mIFEU (0-0.59)
[2020-04-25] MEDS: sodium chloride 0.9% 1,000 ML 30 ML IV (02:16)
[2020-04-25 02:21] LABS: Thyroid Stimulating Hormone 10.64 uIU/mL (0.27-4.20)
--- NOTE | 2020-04-25 02:40 | PC.NURSE ---
ADMIT NOTE Pt was received from ER at 0125 via [facility]. Ambulated to bed from [facility] with poor tolerance. Says is very weak and legs do not want to work well. Denies and dizziness. Tells me she has been getting progressively more weak. Says normally sits up in chair almost all the time. Says she sleeps in chair as well as up all day. c/o having sores on her bottom. Noted both buttocks as well as sacral area to have very dark red/purple DTI injuries with open wound to left buttock. Pictures were sent to Dr Blackman per his request. Pt also has redness/excoriation under both breasts R>L and in both groin areas as well as perineal/bilat upper thighs. Areas had rolled dried powder present. Areas were cleansed and dried well with Nystatin powder applied. Pt states she cannot wash herself and doesn't trust to give her showers. Tonight pt says she became weak and slid to the floor Then was unable to get up. EMS was called for assist. Denes any injury. Jackson catheter was removed in ER before coming to floor but replaced per new order after saw wounds. IV fluids started at 30ml/hr rate. O2 in place at 4l per NC and says O2 is chronic at this flow. Hungry on admit and had some gary crackers and cola. Says she missed dinner
[2020-04-25 05:30] LABS: Basophils # 0.1 10^3/uL (0.0-0.1); Basophils % 0.5 %; Eosinophils # 0.3 10^3/uL (0.0-0.8); Eosinophils % 1.5 %; Hematocrit 42.2 % (37.0-47.0); Hemoglobin 12.4 g/dL (11.5-15.3); Lymphocytes # 1.8 10^3/uL (0.8-4.8); Lymphocytes % 10.6 %; Mean Corpuscular HGB Conc 29.4 g/dL (30.0-36.0); Mean Corpuscular Hemoglobin 28.4 pg (28.0-34.0); Mean Corpuscular Volume 96.6 fL (81-99); Mean Platelet Volume 11.5 fL (7.4-10.4); Monocytes # 1.2 10^3/uL (0.2-0.9); Monocytes % 6.9 %; Neutrophils # 13.67 10^3/uL (1.8-7.7); Neutrophils % 79.9 %; Nucleated Red Blood Cells % 0 %; Platelet Count 286 10^3/cmm (130-400); Red Blood Count 4.37 10^6/uL (4.1-5.3); Red Cell Distribution Width 14.1 % (12.1-15.1); White Blood Count 17.1 10^3/uL (4.0-10.0)
[2020-04-25 06:14] LABS: Troponin 5 6HR 91.53 ng/L (0-10)
[2020-04-25 06:24] LABS: Anion Gap 11.9 (5-19); Blood Urea Nitrogen 18 mg/dL (8-23); Calcium 8.6 mg/dL (8.5-10.5); Carbon Dioxide 36 mmol/L (22-29); Chloride 94 mmol/L (98-107); Glucose 150 mg/dL (65-115); Osmolality Calculated 291 mOsm/kg (285-295); Potassium 3.9 mmol/L (3.5-5.1); Sodium 138 mmol/L (136-145)
[2020-04-25 06:25] LABS: Troponin 5 6HR Delta -1.47 ng/L (0-12)
[2020-04-25] MEDS: atorvastatin 40 mg Tablet PO (08:07)
[2020-04-25] MEDS: famotidine 20 mg Tablet PO ×2 (08:07→17:37)
[2020-04-25] MEDS: levothyroxine 100 mcg Tablet 200 MCG PO (08:07)
[2020-04-25] MEDS: lisinopril 20 mg Tablet PO (08:08)
--- NOTE | 2020-04-25 09:18 | PM.PN ---
Subjective Subjective: Interval history: Patient denies shortness of breath or chest pain. Reports that it was just an accident and she slid down as her legs could not hold her. She denies any focal neurological symptoms. Reports that she was supposed to take Lasix at home but she was not to avoid frequent urinations. Reports pain all over her upper body because they were trying to pull me . Patient absolutely refuses to consider correction facility placement for further rehabilitation. She is okay to have home health. She does not feel strong enough to be dismissed home today and is planning to go home tomorrow. She was noted to have elevated white blood cell count. Reports it was burning when Jackson catheter was placed but otherwise she did not notice any burning on urination prior to. She denies cough or abdominal pain. Her UA shows 0-4 WBC and 1+ bacteria. Patient is currently on 4 L of oxygen saturating in the mid 90s. Apparently she is chronically on oxygen at home. Vitals/I&O/Wt Last Vital Signs Temp 98.0 F 04/25/20 07:28 Pulse 76 04/25/20 08:32 Resp 17 04/25/20 07:28 BP 107/67 04/25/20 07:28 Pulse Ox 99 04/25/20 08:32 04/24/20 04/25/20 04/25/20 22:59 06:59 14:59 Intake Total 240 / 240 Output Total 350 / 350 Balance -110 / -110 Weight last 48 hrs Weight 136.078 kg Physical Exam Const: COMMON NORMALS: no acute distress and patient oriented x3 Resp: COMMON NORMALS: normal respiratory effort and clear to auscultation bilaterally AUSCULTATION: clear to auscultation bilaterally OTHER: Decreased air movement Cardio: COMMON NORMALS: regular rate, regular rhythm and S2 normal heart sound present RATE: regular rate RHYTHM: regular rhythm HEART SOUNDS: S2 normal heart sound present OTHER: 1+ bilateral lower extremity edema GI: COMMON NORMALS: Normal to inspection, nondistended, normoactive bowel sounds present, Soft to palpation and non-tender PALPATION: Yes Soft to palpation Neuro: COMMON NORMALS: patient oriented x3 and no focal motor deficits Skin: NARRATIVE SKIN EXAM: Was unable to turn around to evaluate patient's back. Urinary Catheter Management^: Jackson: Cath Placed During This Visit: yes Reason for Continuing Indwelling Catheter: Accurate Measurement of Urinary Output in Critically Ill Patients Urinary Catheter Date of Insertion: 04/25/20 Urinary Catheter Time of Insertion: 02:00 Data : 04/25/20 04:13 04/25/20 04:13 A&P Assessment and plan (1) Generalized weakness: Status: Acute (2) Inability to walk: Patient reports that she does walk at home with a walker and help from her . Status: Acute (3) Accident due to mechanical fall without injury: Status: Acute (4) Troponin level elevated: Status: Acute Additional A&P Information Mechanical fall Secondary to deconditioning, morbid obesity EKG did not show ischemic or infarctive changes, right bundle branch with left posterior fascicle block pattern Troponin 93, I do not have good reason for such a high troponin, will check D-dimer, serial troponin and EKG currently chest pain-free Inability to walk secondary to morbid obesity Patient is using chairlift in order to change positions, sedentary lifestyle, dependent on her for daily activities, she might benefit from home health services We will check B12 level and A1c Hypothyroidism: Continue levothyroxine 200 mcg, check TSH Mild hyponatremia which seems secondary to chlorthalidone Holding chlorthalidone for now along Lasix Patient is getting fluids resuscitation for clinical signs of dehydration Chronic hypoxic respiratory failure. Medical noncompliance Morbid obesity due to increased calorie intake with BMI 49.9 Deconditioning/debility DVT prophylaxis Lovenox Cardiac diet Full code PLAN: Because of elevated troponin, elevated WBC as well as hypoxia and sedentary lifestyle we will proceed with further evaluation with CT of chest and echocardiogram. Check hemoglobin A1c in a.m. Telemetry monitoring Consider antibiotic depending on findings. We will need to find out when patient's thyroid medication was last adjusted. Since patient shows evidence of fluid overload I will hold fluids for now. Vitals are stable. Attestations Medical Necessity Statement*: Patient with elevated WBC and troponin as well as hypoxia requires further hospitalization until deemed safe for discharge. Time Spent in Patient Care: 16 - 35 minutes Coding Level of Care Code Acute Speed Belt Sander Tender for Chg Fwd Diagnoses Generalized weakness R53.1 Inability to walk R26.2 Accident due to mechanical fall without injury W19.XXXA Troponin level elevated R77.8
--- NOTE | 2020-04-25 09:34 | USCV_ITS ---
Yvonne Deja Age: 79 Gender: F : 1940 Exam Date: 04/25/2020 13:20 Ordering Phys: Jonnathan Oliveros MD Technologist: Desiree Mata Exam Location: [facility] – [place] Indication: weakness, concern for CHF BP: 103 / 59 HR: 106 Rhythm: Sinus Technical Quality: Adequate MEASUREMENTS (Male / Female) Normal Values 2D ECHO LV Diastolic Diameter PLAX 2.8 cm 4.2 - 5.9 / 3.9 - 5.3 cm LV Systolic Diameter PLAX 2.0 cm LV Chamber Size 4.1 cm IVS Diastolic Thickness 1.2 cm 0.6 - 1.0 / 0.6 - 0.9 cm IVS Systolic Thickness 1.6 cm LVPW Diastolic Thickness 1.5 cm 0.6 - 1.0 / 0.6 - 0.9 cm LVPW Systolic Thickness 1.5 cm RV Chamber Size 3.5 cm LVOT Diameter 2.0 cm LV Ejection Fraction 2D Teich 57.2 % LV Ejection Fraction MOD 2C 55.2 % LV Ejection Fraction 2C AL 58.5 % LA Diameter 3.2 cm LA Width 3.6 cm LA Height 4.0 cm RA Width 4.2 cm RA Height 4.9 cm Aorta at Sinotubular Diameter 2.8 cm M-MODE LV Diastolic Diameter MM 4.2 cm 4.2 - 5.9 / 3.9 - 5.3 cm LV Systolic Diameter MM 2.3 cm LV Ejection Fraction MM Teich 75.8 % IVS Diastolic Thickness MM 1.2 cm 0.6 - 1.0 / 0.6 - 0.9 cm IVS Systolic Thickness MM 1.9 cm LVPW Diastolic Thickness MM 1.2 cm 0.6 - 1.0 / 0.6 - 0.9 cm LVPW Systolic Thickness MM 1.7 cm RV Diastolic Diameter MM 2.9 cm Aortic Annulus Diameter 3.3 cm LA Ao Ratio MM 1.0 MV E Point Septal Separation 0.5 cm DOPPLER AV Peak Velocity 350.4 cm/s LVOT Peak Velocity 98.0 cm/s AV Area Cont Eq vti 0.7 cm squared AV Area Cont Eq pk 0.9 cm squared MV Area PHT 5.4 cm squared Mitral E to A Ratio 0.8 MV E' Velocity 49.0 cm/s Mitral E to MV E' Ratio 14.6 Mitral E to LV E' Lateral Ratio 13.1 Mitral E to LV E' Septal Ratio 16.8 TR Peak Velocity 403.7 cm/s TR Peak Gradient 65.2 mmHg TR Mean Velocity 268.1 cm/s TR Mean Gradient 34.1 mmHg TR Velocity Time Integral 140.4 cm TV Peak E Velocity 78.0 cm/s Right Atrial Pressure 15.0 mmHg Pulmonary Artery Systolic Pressu 80.2 mmHg PV Peak Velocity 51.0 cm/s RV Acceleration Time 0.1 s RV Ejection Time 0.3 s RV AcT/ET 0.5 FINDINGS Left Ventricle Normal left ventricular size and systolic function. Septal motion is consistent with conduction abnormality. LVEF is 50 to 55%. Moderate left ventricular hypertrophy is present. Grade 1 diastolic dysfunction is noted. Right Ventricle The right ventricle is mildly enlarged and has mild hypokinesis. Right Atrium The right atrium is normal in size. Left Atrium The left atrium is normal in size. Mitral Valve Moderate mitral annular calcification is present. Calcified subvalvular apparatus. No significant stenosis or prolapse. There is no mitral regurgitation. Aortic Valve Aortic valve is thickened and calcified. Mild to moderate aortic stenosis is noted. By continuity equation, aortic valve area is calculated as 1.54 cm squared with mean gradient across the valve of 12 mmHg. There is no aortic regurgitation. Tricuspid Valve Structurally normal tricuspid valve without significant stenosis. Mild tricuspid regurgitation is noted. RVSP is 45 to 50 mmHg. Moderate pulmonary hypertension is noted. Elevated RA pressure with right atrial pressure of 15 mmHg. Pulmonic Valve Structurally normal pulmonic valve without significant stenosis. There is no pulmonic regurgitation. Pericardium Normal pericardium without effusion. Aorta Normal ascending aorta dimension. CONCLUSIONS LV systolic function is normal with EF of 50 to 55%. Septal motion is consistent with conduction abnormality. Grade 1 diastolic dysfunction is noted. RV is mildly hypokinetic and is enlarged. Moderate mitral annular calcification with calcified subvalvular apparatus. Mild to moderate aortic valvular stenosis was noted with aortic valve area of 1.54 cm squared and mean gradient across the valve of 12 mmHg. Moderate pulmonary hypertension is noted with RVSP of 45 to 50 mmHg. RA pressure is elevated and is 15 mmHg. No comparison studies are available. Aaron Bruno MD (Electronically Signed) Final Date: 25 April 2020 17:30 S
--- NOTE | 2020-04-25 09:37 | CT_ITS ---
WS: [id number] CT CHEST ANGIOGRAPHY WITH REFORMATS HISTORY: Hypoxic. TECHNIQUE: Contiguous axial images are obtained through the chest during arterial injection of intrav enous contrast. Images are reconstructed to evaluate the pulmonary arteries. MIP imaging also reviewe d. All CT scans at [facility] use at least one of these dose optimization techniques: aut omated exposure control; mA and/or kV adjustment per patient size (includes targeted exams where dose is matched to clinical indication); or iterative reconstruction. CONTRAST: Omnipaque 350; 95 mL IV. DLP: 527.57 mGy.cm COMPARISON: 04/16/2011 Good opacification of the pulmonary arteries. No pulmonary embolism is identified. Pulmonary artery s ize is enlarged 4.2 cm. Mild atherosclerosis aorta. Cardiac chambers are very slightly enlarged. No p ericardial effusion. Minimal dependent changes posteriorly at the lung bases. There is scattered mild interstitial thickening which is probably due to edema. There is a stable slightly lobulated solid n odule in the superior RIGHT lower lobe measuring 13 x 11 mm. Stable since 04/16/2011. Bilateral mediastinal and hilar mildly prominent lymphoid tissue. No significantly enlarged lymph nod es. Prior cholecystectomy. Mild hepatic steatosis. LEFT adrenal gland is enlarged and lobulated and simil ar to the prior study from 2010. Mild increase in the thoracic kyphosis. Mild anterior wedging of T11 and T12. CT/CT angio chest PE protcl [id number] IMPRESSION: 1. No pulmonary embolism. 2. Marked enlargement of pulmonary artery. 3. Mildly prominent lymphoid tissue is probably reactive. Not considered lymph adenopathy at this time. 4. Long-term stability solid nodule RIGHT lower lobe. 5. Mild haziness and interstitial thickening over both lungs is probably due t o mild pulmonary edema.
[2020-04-25] MEDS: iohexol 350 mg/mL 100 mL Btl IV (11:01)
--- NOTE | 2020-04-25 15:34 | PC.RESP ---
Pulmonary Rehab information sent to patient.
[2020-04-25] MEDS: fixodent 39 gm Tube 1 APPLIC DENTAL (17:37)
[2020-04-25] MEDS: aspirin 81 mg EC Tablet PO (23:42)
[2020-04-26] VITALS: BP 128/83; PULSE 74; RESP 24; TEMP 36.8; O2SAT 93
[2020-04-26 04:00] VITALS: BP 105/57; PULSE 74; RESP 16; TEMP 36.4; O2SAT 93
[2020-04-26 06:22] LABS: Estmated Average Glucose 126
[2020-04-26 07:49] LABS: Alanine Aminotransferase 9 U/L (0-33); Albumin Level 3.5 g/dL (3.5-5.2); Alkaline Phosphatase 62 IU/L (35-105)
[2020-04-26 07:57] LABS: Aspartate Amino Transferase 17 U/L (0-32); Blood Urea Nitrogen 19 mg/dL (8-23); Calcium 8.8 mg/dL (8.5-10.5); Globulin 3.2 g/dL (1.3-4.6); Total Bilirubin 0.4 mg/dL (0.15-1.2); Total Protein 6.8 g/dL (6.6-8.7)
[2020-04-26 07:59] LABS: Basophils # 0.1 10^3/uL (0.0-0.1); Basophils % 0.5 %; Carbon Dioxide 36 mmol/L (22-29); Chloride 89 mmol/L (98-107); Eosinophils # 0.5 10^3/uL (0.0-0.8); Eosinophils % 2.9 %; Glucose 127 mg/dL (65-115); Hematocrit 44.6 % (37.0-47.0); Hemoglobin 13.2 g/dL (11.5-15.3); Lymphocytes # 1.4 10^3/uL (0.8-4.8); Lymphocytes % 8.8 %; Mean Corpuscular HGB Conc 29.6 g/dL (30.0-36.0); Mean Corpuscular Hemoglobin 28.6 pg (28.0-34.0); Mean Corpuscular Volume 96.7 fL (81-99); Monocytes % 6.2 %; Neutrophils % 81.1 %; Nucleated Red Blood Cells % 0 %; Osmolality Calculated 280 mOsm/kg (285-295); Platelet Count 307 10^3/cmm (130-400); Red Blood Count 4.61 10^6/uL (4.1-5.3); Red Cell Distribution Width 14.3 % (12.1-15.1); Sodium 133 mmol/L (136-145); White Blood Count 15.5 10^3/uL (4.0-10.0)
[2020-04-26] MEDS: levothyroxine 100 mcg Tablet 200 MCG PO (08:41)
[2020-04-26] MEDS: lisinopril 20 mg Tablet PO (08:41)
[2020-04-26] MEDS: atorvastatin 40 mg Tablet PO (08:41)
[2020-04-26] MEDS: famotidine 20 mg Tablet PO (08:41)
[2020-04-26] MEDS: nystatin powder 15 gm Btl 1 APPLIC TOPICAL (08:45)
--- NOTE | 2020-04-26 09:25 | PM.DCS ---
Discharge Providers Date of Admission: 04/24/20 23:56 Date of Discharge: April 26, 2020 Attending Provider at Admission: Antionette Blackman MD Attending Provider at Discharge: Jonnathan Oliveros MD Primary Care Provider: Ruben Rodriguez MD Diagnoses at Discharge Discharge Diagnosis (1) Generalized weakness: Status: Acute (2) Inability to walk: Status: Acute (3) Accident due to mechanical fall without injury: Status: Acute (4) Troponin level elevated: Status: Acute Problem details: Appears to be related to demand ischemia due to underlying CHF/pneumonia. (5) Pneumonia: Status: Acute Problem details: Community-acquired pneumonia cannot be ruled out and is suspected given CT findings and leukocytosis. Present on admission (6) Acute diastolic (congestive) heart failure: Status: Acute Problem details: Possible mild acute diastolic CHF exacerbation. Present on admission Reason for Visit Reason for Visit: FALL Hospital Course Discharge Summary: Patient presented with fall due to bilateral lower extremity weakness. She was further evaluated and noted to have elevated troponin and minimally elevated BNP. She clinically did not appear to be in heart failure although mild diastolic heart failure cannot be completely ruled out. Her EF was normal and she had mild diastolic dysfunction. Her hydrochlorothiazide was discontinued and Lasix was increased to 40 mg daily. Patient's TSH was elevated more than 10. Discussed with Dr. Rodriguez who did not adjust thyroid medication for long period of time therefore we will increase it to [address] scan was performed showing some haziness which could possibly be related to fluid but since pneumonia cannot be completely ruled out and given the fact that patient has leukocytosis I will start patient on third-generation cephalosporin and azithromycin for possible pneumonia. I will request repeat lab work in several days prior to primary care physician follow-up. Patient did well this morning with PT with recommendation to continue with physical and occupational therapy at home. We will also give 1 dose of Lasix and if patient continues to do well we will dismiss her later this afternoon. Patient slightly elevated troponin is likely related to possible mild diastolic CHF versus pneumonia. Patient denies any shortness of breath or chest pain this morning. She is using oxygen at home chronically and this will be continued. Physical Exam Const: COMMON NORMALS: no acute distress and patient oriented x3 Resp: COMMON NORMALS: normal respiratory effort and clear to auscultation bilaterally AUSCULTATION: clear to auscultation bilaterally Cardio: COMMON NORMALS: regular rate, regular rhythm and S2 normal heart sound present RATE: regular rate RHYTHM: regular rhythm HEART SOUNDS: S2 normal heart sound present OTHER: No lower extremity edema GI: COMMON NORMALS: Normal to inspection, nondistended, normoactive bowel sounds present, Soft to palpation and non-tender PALPATION: Yes Soft to palpation Neuro: COMMON NORMALS: patient oriented x3 and no focal motor deficits Urinary Catheter Management^: Jackson: Cath Placed During This Visit: yes, but has since been removed by the nurse Reason for Continuing Indwelling Catheter: Does Not Meet Criteria Urinary Catheter Date of Insertion: 04/25/20 Urinary Catheter Time of Insertion: 02:00 Date Urinary Catheter Removed: 04/26/20 Time Urinary Catheter Discontinued: 08:00 Discharge Data Data Completed and Pending: Completed Studies During Hospitalization Category Date Time Status CT angio chest PE protcl [id number] Rout ine Cat Scan 04/25/20 09:37 Completed XR chest 1V leyda ble [id number] Stat Exams 04/24/20 21:19 Completed XR pelvis 1-2V* 7 2170 Stat Exams 04/24/20 21:19 Completed CV echo complete* [id number] Routine Ultrasound 04/25/20 09:34 Completed Pending at discharge Category Date Time Status Complete Blood Co unt w/Auto AM LABS Lab 04/27/20 04:00 Ordered Complete Blood Co unt w/Auto AM LABS Lab 04/28/20 04:00 Ordered Complete Blood Co unt w/Auto AM LABS Lab 04/29/20 04:00 Ordered Comprehensive Met abolic Panel AM LA BS Lab 04/27/20 04:00 Ordered Comprehensive Met abolic Panel AM LA BS Lab 04/28/20 04:00 Ordered Comprehensive Met abolic Panel AM LA BS Lab 04/29/20 04:00 Ordered Magnesium AM LABS Lab 04/27/20 04:00 Ordered Magnesium AM LABS Lab 04/28/20 04:00 Ordered Magnesium AM LABS Lab 04/29/20 04:00 Ordered Labs from last 24 hours 04/26/20 04/26/20 04/26/20 05:04 05:04 05:04 WBC 15.5 H RBC 4.61 Hgb 13.2 Hct 44.6 MCV 96.7 MCH 28.6 MCHC 29.6 L RDW 14.3 Plt Count 307 MPV 12.0 H Neut % (Auto) 81.1 Lymph % (Auto) 8.8 [place] % (Auto) 6.2 Eos % (Auto) 2.9 Baso % (Auto) 0.5 Neut # (Auto) 12.60 H Lymph # (Auto) 1.4 [place] # (Auto) 1.0 H Eos # (Auto) 0.5 Baso # (Auto) 0.1 Nucleated RBC % (a uto) 0 Nucleated RBCs # 0.0 Sodium 133 L Potassium 4.0 Chloride 89 L Carbon Dioxide 36 H Anion Gap 12.0 BUN 19 Creatinine 0.7 GFR Calculation Not Reportable Glucose 127 H Estimat Average Gl ucose 126 Hemoglobin A1c 6.0 Calculated Osmolal ity 280 L Calcium 8.8 Total Bilirubin 0.4 AST 17 ALT 9 Alkaline Phosphata se 62 Total Protein 6.8 Albumin 3.5 Globulin 3.2 Vitals: Last Vital Signs Temp 97.6 F 04/26/20 04:00 Pulse 74 04/26/20 04:00 Resp 16 04/26/20 04:00 BP 105/57 04/26/20 04:00 Pulse Ox 93 04/26/20 04:00 Discharge Plan Discharge Patient Disposition: Home Health Service Condition: Stable Prescriptions: New aspirin 81 mg Tablet,Delayed Release (Dr/Ec) 81 mg PO DAILY Qty: 30 RF: 0 cefdinir 300 mg capsule 300 mg PO BID 5 Days Qty: 10 RF: 0 azithromycin 250 mg tablet 250 mg PO DAILY 4 Days Qty: 4 RF: 0 Continued lisinopril 20 mg tablet 20 mg PO DAILY RF: 0 famotidine 20 mg tablet 20 mg PO BID RF: 0 rosuvastatin 10 mg tablet 10 mg PO DAILY RF: 0 multivitamin [Multiple Vitamins] Tablet 1 tab PO DAILY RF: 0 vitamin E 1,000 unit Capsule 1,000 unit PO DAILY RF: 0 cyanocobalamin (vitamin B-12) [Vitamin B-12] 1,000 mcg Tablet 1,000 mcg PO DAILY RF: 0 acetaminophen [Tylenol Arthritis Pain] 650 mg Tablet Extended Release 1,300 mg PO TID PRN (Reason: Pain) RF: 0 calcium carbonate [Calcium 500] 500 mg calcium (1,250 mg) Tablet 500 mg PO DAILY RF: 0 pyridoxine (vitamin B6) [Vitamin B-6] 100 mg Tablet 50 mg PO DAILY RF: 0 potassium chloride 20 mEq tablet extended release 20 meq PO DAILY Qty: 7 RF: 0 Changed Synthroid 200 mcg tablet 250 mcg PO DAILY Qty: 30 RF: 0 Lasix 20 mg tablet 40 mg PO DAILY Qty: 60 RF: 0 Discontinued chlorthalidone 25 mg tablet 25 mg PO DAILY RF: 0 aspirin [Aspir-81] 81 mg Tablet,Delayed Release (Dr/Ec) 81 mg PO DAILY RF: 0 Discharge Orders: Discharge Order (Routine); Ordered 04/26/20 Ordered By: Jonnathan Oliveros Other Ambulatory Orders: Complete Blood Count w/Auto (Routine) Timeframe: 20200430 Location: Determined by Patient Ordered By: Jonnathan Oliveros Comprehensive Metabolic Panel (Routine) Timeframe: 20200430 Facility: [facility] - Location: Lab - Main Lab Ordered By: Jonnahtan Oliveros Referrals: Ruben Rodriguez MD [Primary Care Provider] - 4-7 days Discharge Diet: Usual diet Discharge Activity: Increase activity as tolerated Patient Instructions: Aspirin (By mouth), Azithromycin (By mouth), Cefdinir (By mouth), Pneumonia Stoplight, Pneumonia - Viral, Fall Prevention Activity Restrictions/Additional Instructions: Please call your doctor or present to emergency department if your condition worsens or you develop diarrhea, lightheadedness, fatigue or see blood in your stool or black stool. Please note that as we have discussed your being treated with antibiotics for suspected pneumonia. Please discuss with your doctor to have TSH repeated in 6 to 8 weeks to make sure your thyroid medication is appropriately dosed. Discharge Attestations Time Spent in Discharge Care*: greater than 30 min Quality Metrics Clinical Quality Measures During this hospital stay, did patient experience: None Coding Level of Care Code Acute Radar Engineering Teacher for Shantel Fwd Diagnoses Generalized weakness R53.1 Inability to walk R26.2 Accident due to mechanical fall without injury W19.XXXA Troponin level elevated R77.8 Pneumonia J18.9 Acute diastolic (congestive) heart failure I50.31
[2020-04-26] MEDS: FUROsemide 10 mg/mL SDV 4mL 40 MG IVP (10:00)
[2020-04-26] MEDS: cefTRIAXone 1,000 MG in sodium chloride 0.9% (plus) 50 ML 100 MG IV (10:00)
[2020-04-26] MEDS: cefdinir 300 MG CAPSULE PO (10:00)
[2020-04-26] MEDS: azithromycin 250 mg Tablet 500 MG PO (10:06)
--- NOTE | 2020-04-26 10:45 | PC.NURSE ---
Assisted patient to bathroom, X1 void cleaned and changed dressings applying X2 otifoam to bilateral inner butt cheeks, assisted back to chair, call light in reach.
[2020-04-26 12:00] VITALS: BP 107/73; PULSE 91; RESP 18; TEMP 36.6; O2SAT 98
--- NOTE | 2020-04-26 13:49 | PC.NURSE ---
Sitting up in chair, denies pain, tolerated lunch without difficulty, call light in reach.
--- NOTE | 2020-04-26 14:11 | PC.NURSE ---
discharge instructions completed verbalized understanding and denies further questions or concerns. awaiting transportation
[2020-04-26 15:21] VITALS: BP 119/69; PULSE 81; RESP 18; TEMP 36.7; O2SAT 98
--- NOTE | 2020-04-26 17:07 | PC.NURSE ---
Patient voiding in brief unable to measure accurate I&O voided X10 wet briefs.
[2020-04-26 17:09] VITALS: BP 119/69; PULSE 81; RESP 18; TEMP 36.7; O2SAT 98
== END 2020-04-26 17:09 | disposition home health service (06) ==
LOC: ER 21:19 → MEDSURG 04-25 00:30
PROVIDERS: Emergency Medicine; Admitting Provider Internal Medicine; PCP Family Medicine; Visit Provider Internal Medicine
DX: R53.1 Weakness (principal); R26.2 Difficulty in walking, not elsewhere classified; Z91.81 History of falling; R77.8 Other specified abnormalities of plasma proteins; R73.9 Hyperglycemia, unspecified; J18.9 Pneumonia, unspecified organism; I50.31 Acute diastolic (congestive) heart failure; E66.01 Morbid (severe) obesity due to excess calories; Z68.42 Body mass index [BMI] 45.0-49.9, adult; E03.9 Hypothyroidism, unspecified; E87.1 Hypo-osmolality and hyponatremia; G47.30 Sleep apnea, unspecified; Z79.82 Long term (current) use of aspirin; J44.9 Chronic obstructive pulmonary disease, unspecified; Z87.11 Personal history of peptic ulcer disease; Z87.891 Personal history of nicotine dependence; Z91.14 Patient's other noncompliance with medication regimen
CPT/HCPCS: 12345; 36415; 51702; 71045; 71275; 72170; 80048; 80053; 81001; 82009; 82550; 83036; 83605; 84443; 84484; 85025; 85378; 85610; 93005; 93306; 96361; 96374; 96375; 97110; 97116; 97161; 97165; 99283; 99285; G0378; J0696; J1940; J7030; Q0144; Q9967

== ENCOUNTER 2020-05-06 08:41 | Emergency (ER) | payer MEDICARE, BC, SELFPAY ==
[2020-05-06 08:52] VITALS: BP 160/97; PULSE 77; RESP 18; TEMP 36.7; O2SAT 98; BMI 53.1
--- NOTE | 2020-05-06 08:56 | ED_ITS ---
HPI - Fall General: Chief Complaint: Fall Stated Complaint: RIGHT KNEE PAIN S/P FALL Time Seen by Provider: 05/06/20 08:43 History of Present Illness: HPI Narrative: Patient is an 79-year-old female who comes to the ED via EMS after having a fall at home. Patient has a past medical history of CHF, COPD, dyslipidemia, hypertension, hypothyroidism and pulmonary hypertension. Patient wears oxygen on 4L at home and has home health aides that come out and see her everyday of the week. Patient says today she was making a cup of coffee and standing up and lost her balance and fell backwards. Patient says she has been up and able to ambulate with a walker for the past week, since released from hospital. Patient says she hit her head but denies any headache, loss of consciousness or head pain. Currently she says she has right knee pain, but denies any other pain or injury. She is able to bend and move right knee without any pain but says if she puts any weight on right knee causes pain. She states she does not want any pain meds currently because pain is not that bad. Denies neck or back pain. Patient also states she has a bedsore on her lower back but home health has been managing. Associated symptoms-after fall: Denies abdominal pain, chest pain, headache(s), hematuria or neck pain Review of Systems Const: Denies: fever(s), chills or fatigue Eyes: Denies: change in vision or eye discomfort ENMT: Denies: throat pain, odynophagia, nasal discharge or nasal congestion Card: Denies: chest pain, palpitations, edema, swelling of feet/ankles, dyspnea on exertion or orthopnea Resp: Denies: dyspnea, productive cough or non-productive cough GI: Denies: abdominal pain, nausea, vomiting, diarrhea, constipation or hematochezia : Denies: flank pain, dysuria or hematuria Musc: Reports: joint pain (right knee pain); Denies: neck pain, back pain or extremity swelling Skin/Breast: Denies: rash or new lesions Neuro: Denies: headache(s), numbness in extremities or weakness in extremities PFS ED PFSH: Medical History Congestive heart failure COPD (chronic obstructive pulmonary disease) CVA (cerebral vascular accident) Dyslipidemia Hypertension Hypothyroidism Irritable bowel syndrome Peptic ulcer disease Pulmonary hypertension Surgical History H/O total hysterectomy S/P breast biopsy S/P cholecystectomy Family History Other Mesothelioma Social History Smoking and tobacco status: former smoker Alcohol intake: never Household members: spouse Housing: House Physical Exam Const: COMMON NORMALS: no acute distress, patient oriented x3 and alert GENERAL APPEARANCE: cooperative and comfortable NUTRITIONAL APPEARANCE: obese morbidly obese HENMT: COMMON NORMALS: normocephalic HEAD & SCALP: normocephalic MOUTH: Normal oral and palatal mucosa present THROAT: posterior oropharynx normal and uvula midline Eye: COMMON NORMALS: Equal, round and reactive pupils present and EOMs intact bilaterally PUPIL: Yes Equal, round and reactive pupils present Neck/C-Spine: COMMON NORMALS: supple GENERAL: Yes normal visual inspection CERVICAL SPINE: Yes cervical ROM normal, No pain with cervical ROM, No Cervical spine tenderness and No Paracervical muscle tenderness Resp: COMMON NORMALS: normal respiratory effort, No retractions, No use of accessory muscles and clear to auscultation bilaterally AUSCULTATION: clear to auscultation bilaterally Cardio: COMMON NORMALS: regular rate, regular rhythm, S1 normal heart sound present, S2 normal heart sound present, No gallops present (Cardio), No clicks present (Cardio), No murmurs present (Cardio) and Peripheral pulses 2+ throughout RATE: regular rate RHYTHM: regular rhythm HEART SOUNDS: S1 normal heart sound present and S2 normal heart sound present PERIPHERAL PULSES: Peripheral pulses 2+ throughout GI: COMMON NORMALS: Normal to inspection, nondistended, normoactive bowel sounds present, Soft to palpation, non-tender and no masses PALPATION: Yes Soft to palpation : COMMON NORMALS: Yes no CVA tenderness BLADDER/KIDNEY EXAM: Yes no CVA tenderness Back/Pelvis: COMMON NORMALS: no CVA tenderness Extremity: COMMON NORMALS: normal to inspection Neuro: COMMON NORMALS: patient oriented x3, CN's II-XII intact bilaterally, moves all extremities, no focal motor deficits and no sensory deficits noted SENSORIUM/ORIENTATION: Yes alert SENSORY EXAM: Yes extremities (intact) MOTOR EXAM: 5/5 motor strength present throughout Skin: GENERAL SKIN EXAM: dry skin Course Vital Signs: Vital signs: Vital Signs Temperature 98.0 F 05/06/20 08:52 Pulse Rate 77 05/06/20 08:52 Respiratory Rate 18 05/06/20 08:52 Blood Pressure 160/97 05/06/20 08:52 Pulse Oximetry 98 05/06/20 08:52 MDM - Fall MDM Narrative: Medical decision making narrative: Patient is an 79-year-old female comes to the ED via EMS after having a fall. Patient is complaining of having some right knee pain and states that she fell back hit her head but did not lose any consciousness. She denies any headache or neurological symptoms. Neuro exam was completely normal. Patient is morbidly obese but is able to ambulate around the house with walker. Patient also has a home health aide that comes out daily. X-ray of right knee shows degenerative disease but no acute bone fractures or abnormalities. CT of head and CT of cervical spine showed no acute findings or fractures. Patient was discharged home and told to rest and ice right knee. Follow-up with PCP in 5 to 7 days. Return to ED precautions given. Patient understood and agreed with plan.. Imaging Data^: Other CT: Attestation: I personally reviewed and interpreted this imaging study as follows: Radiologist's impression: [address] [address] [address] Scan Report Signed Patient: Deja Russell Unit #: [id number] : 1940 Age/Sex: 79 / F ADM Date: 05/06/20 Loc: ER Room/Bed: Attending Dr: Ordering Provider/Ordering MD: Jj Mistry Date of Service: 05/06/20 Procedure(s): CT cervical spin wo con* [id number] Accession Number(s): [id number] Report Number: [id number] PROCEDURE INFORMATION: Exam: CT Cervical Spine Without Contrast Exam date and time: 05/06/2020 9:11 AM Age: 79 years old Clinical indication: Injury or trauma; Fall; Blunt trauma; Additional info: Fall and hit head TECHNIQUE: Imaging protocol: Computed tomography images of the cervical spine without contrast. Radiation optimization: All CT scans at this facility use at least one of these dose optimization techniques: automated exposure control; mA and/or kV adjustment per patient size (includes targeted exams where dose is matched to clinical indication); or iterative reconstruction. COMPARISON: No relevant prior studies available. RADIATION DOSE METRICS: Total DLP (mGy-cm): 934.39 FINDINGS: Bones/joints: No fracture or other acute bone or joint abnormalities are seen in the cervical spine. Chronic degenerative disease is present throughout the cervical spine with disc space narrowing sclerosis and osteophyte formation especially at the C5-C6 level. There is facet joint hypertrophy specially on the left side. There is moderate spinal stenosis at this level. There is grade 1 spondylolisthesis at the C3-C4 level which appears to be due to chronic facet joint degeneration. Discs/Spinal canal/Neural foramina: See Bones/joints finding. Soft tissues: Unremarkable. Lungs: Lung apices are normal. CT/CT cervical spin wo con* [id number] IMPRESSION: Chronic degenerative joint disease. No fracture or other acute abnormality. Radiation Dose CTDIVOL = (mGy): DLP = 934.39 (mGy-cm) Dictated By: Ulysses Loya Signed By: Ulysses Loya Signed Date/Time: 05/06/20938 DD/ 6 CT Head: Attestation: I personally reviewed and interpreted this imaging study as follows: Radiologist's impression: [address] [address] [address] Scan Report Signed Patient: Deja Russell Unit #: [id number] : 1940 Age/Sex: 79 / F ADM Date: 05/06/20 Loc: ER Room/Bed: Attending Dr: Ordering Provider/Ordering MD: Jj Mistry Date of Service: 05/06/20 Procedure(s): CT head wo con* [id number] Accession Number(s): [id number] Report Number: [id number] PROCEDURE INFORMATION: Exam: CT Head Without Contrast Exam date and time: 05/06/2020 9:11 AM Age: 79 years old Clinical indication: Injury or trauma; Fall; Blunt trauma (contusions or hematomas); Consciousness not specified; Additional info: Fall and hit head TECHNIQUE: Imaging protocol: Computed tomography of the head without contrast. Radiation optimization: All CT scans at this facility use at least one of these dose optimization techniques: automated exposure control; mA and/or kV adjustment per patient size (includes targeted exams where dose is matched to clinical indication); or iterative reconstruction. COMPARISON: No relevant prior studies available. RADIATION DOSE METRICS: Total DLP (mGy-cm): 821.06 FINDINGS: Brain: There is mild decreased white matter density consistent with chronic small vessel white matter ischemia. No intracranial hemorrhage, edema or other acute abnormalities are seen in the brain. Cerebral ventricles: There is generalized prominence of the ventricles and sulci indicating chronic atrophy. Bones/joints: Unremarkable. No acute fracture. Paranasal sinuses: Visualized sinuses are unremarkable. No fluid levels. Mastoid air cells: Visualized mastoid air cells are well aerated. Soft tissues: Unremarkable. CT/CT head wo con* [id number] IMPRESSION: No acute abnormalities are seen in the brain. Radiation Dose CTDIVOL = (mGy): DLP = 821.06 (mGy-cm) Dictated By: Ulysses Loya Signed By: Ulysses Loya Signed Date/Time: 05/06/20939 DD/ 8 Xray Ortho: Attestation: I personally reviewed and interpreted this imaging study as follows: Radiologist's impression: [address] [address] XRay Report Signed Patient: Deja Russell Unit #: [id number] : 1940 Age/Sex: 79 / F ADM Date: 05/06/20 Loc: ER Room/Bed: Attending Dr: Ordering Provider/Ordering MD: Jj Mistry Date of Service: 05/06/20 Procedure(s): XR knee RT 3V* [id number] Accession Number(s): [id number] Report Number: [id number] PROCEDURE INFORMATION: Exam: XR Right Knee Exam date and time: 05/06/2020 9:11 AM Age: 79 years old Clinical indication: Injury or trauma; Fall; Blunt trauma; Knee; Right; Additional info: Fall with knee pain TECHNIQUE: Imaging protocol: XR Right knee. Views: 3 views. COMPARISON: No relevant prior studies available. FINDINGS: Bones/joints: Prominent chronic degenerative joint disease is present with osteophyte formation of the femoral condyles, tibial plateau and patella. There is prominent joint space narrowing. No fracture or other acute bony abnormality is seen. Joint effusion is present with fluid in the suprapatellar bursa. Soft tissues: Normal. Vasculature: Prominent arterial atherosclerotic calcifications are present. XR/XR knee RT 3V* [id number] IMPRESSION: Prominent degenerative disease. No acute bony abnormality. Dictated By: Ulysses Loya Signed By: Ulysses Loya Signed Date/Time: 05/06/20 100 DD/ 100 Discharge Plan Discharge Patient Disposition: Home Clinical Impression: Fall as cause of accidental injury at home as place of occurrence Qualifiers: Encounter type: initial encounter Qualified Code(s): W19.XXXA - Unspecified fa ll, initial encounter Degenerative joint disease of knee, right Qualifiers: Osteoarthritis type: primary Qualified Code(s): M17.11 - Unilateral primary osteoarthritis, right knee Condition: Stable Prescriptions: No Action lisinopril 20 mg tablet 20 mg PO DAILY RF: 0 famotidine 20 mg tablet 20 mg PO BID RF: 0 rosuvastatin 10 mg tablet 10 mg PO DAILY RF: 0 multivitamin [Multiple Vitamins] Tablet 1 tab PO DAILY RF: 0 vitamin E 1,000 unit Capsule 1,000 unit PO DAILY RF: 0 cyanocobalamin (vitamin B-12) [Vitamin B-12] 1,000 mcg Tablet 1,000 mcg PO DAILY RF: 0 acetaminophen [Tylenol Arthritis Pain] 650 mg Tablet Extended Release 1,300 mg PO TID PRN (Reason: Pain) RF: 0 calcium carbonate [Calcium 500] 500 mg calcium (1,250 mg) Tablet 500 mg PO DAILY RF: 0 pyridoxine (vitamin B6) [Vitamin B-6] 100 mg Tablet 50 mg PO DAILY RF: 0 potassium chloride 20 mEq tablet extended release 20 meq PO DAILY Qty: 7 RF: 0 aspirin 81 mg Tablet,Delayed Release (Dr/Ec) 81 mg PO DAILY Qty: 30 RF: 0 levothyroxine [Synthroid] 200 mcg tablet 250 mcg PO DAILY Qty: 30 RF: 0 furosemide [Lasix] 20 mg tablet 40 mg PO DAILY Qty: 60 RF: 0 Discharge Orders: Discharge Order (Routine); Ordered 05/06/20 Ordered By: Jj Mistry Referrals: Ruben Rodriguez MD [Primary Care Provider] - Discharge Diet: Regular Discharge Activity: Increase activity as tolerated Patient Instructions: Fall Prevention (ED) Activity Restrictions/Additional Instructions: Follow-up with medical provider as directed in 5 to 7 days. Continue taking all home medications as prescribed. Rest ice and elevate right knee to help with symptoms. Return to the ER or your medical provider if condition worsens. Please read and understand discharge instructions. If any questions, please ask. Coding Level of Care Code ED Airline Customer Service Agent for Chg Fwd Exam Comprehensive
--- NOTE | 2020-05-06 11:58 | PC.NURSE ---
Pt requested [facility] transport to take her home. Pt understands there is a fee. Call to [facility] transport at this time, spoke with staff member who requests I call again in 10 minutes so he can get the patients information.
== END 2020-05-06 12:50 | disposition home or self-care (01) ==
PROVIDERS: Emergency Provider Physician Assistant; PCP Family Medicine
DX: M17.11 Unilateral primary osteoarthritis, right knee (principal); Z79.82 Long term (current) use of aspirin; I11.0 Hypertensive heart disease with heart failure; I50.9 Heart failure, unspecified; J44.9 Chronic obstructive pulmonary disease, unspecified; Z86.73 Personal history of transient ischemic attack (TIA), and cerebral infarction without residual deficits; E78.5 Hyperlipidemia, unspecified; Z87.891 Personal history of nicotine dependence; Z99.81 Dependence on supplemental oxygen
CPT/HCPCS: 12345; 70450; 72125; 73562; 99281; 99283

== ENCOUNTER 2020-07-03 15:07 | Emergency (ER) | payer MEDICARE, BC, SELFPAY ==
--- NOTE | 2020-07-03 15:20 | ED_ITS ---
Documented by User: DIANE Aponte 07/04/20 17:33 HPI - Fall General: Chief Complaint: Fall Stated Complaint: FALL Time Seen by Provider: 07/03/20 15:11 History of Present Illness: HPI Narrative: Patient is a 79-year-old female who comes to the ED via EMS after having a fall. Patient has a past medical history of congestive heart failure, COPD and is on oxygen at home. Patient says she was up moving around and she got tangled up in her oxygen tubing which caused her to trip and fall back. She says she hit her bottom on the ground first and then fell completely back, but denies any head trauma or loss of consciousness.. Patient states she started developing a headache after the fall. She is complaining of having some tailbone pain as well. Patient did not take any pain meds before coming to the ED and states she does not want any pain meds while here in the ED. Denies any neurological symptoms. Associated symptoms-after fall: Reports headache(s); Denies abdominal pain, chest pain, hematuria or neck pain Review of Systems Const: Denies: fever(s), chills or fatigue Eyes: Denies: change in vision or eye discomfort ENMT: Denies: throat pain, odynophagia, nasal discharge or nasal congestion Card: Denies: chest pain, palpitations, edema, swelling of feet/ankles, dyspnea on exertion or orthopnea Resp: Denies: dyspnea, productive cough or non-productive cough GI: Denies: abdominal pain, nausea, vomiting, diarrhea, constipation or hematochezia : Denies: flank pain, dysuria or hematuria Musc: Reports: back pain (mild tailbone pain); Denies: neck pain or extremity swelling Skin/Breast: Denies: rash or new lesions Neuro: Reports: headache(s); Denies: numbness in extremities or weakness in extremities [facility] ED PFSH: Medical History (Updated 07/03/20 @ 18:17 by PIERCE Reynolds) Congestive heart failure COPD (chronic obstructive pulmonary disease) CVA (cerebral vascular accident) Dyslipidemia Hypertension Hypothyroidism Irritable bowel syndrome Peptic ulcer disease Pulmonary hypertension Surgical History H/O total hysterectomy S/P breast biopsy S/P cholecystectomy Family History Other Mesothelioma Social History Smoking and tobacco status: former smoker Alcohol intake: never Household members: spouse Housing: House Physical Exam Const: COMMON NORMALS: no acute distress, patient oriented x3 and alert GENERAL APPEARANCE: cooperative and comfortable NUTRITIONAL APPEARANCE: obese HENMT: COMMON NORMALS: normocephalic HEAD & SCALP: normocephalic MOUTH: Normal oral and palatal mucosa present THROAT: posterior oropharynx normal and uvula midline Eye: COMMON NORMALS: Equal, round and reactive pupils present, EOMs intact bilaterally and conjunctivae normal CONJUNCTIVA: Yes conjunctivae normal PUPIL: Yes Equal, round and reactive pupils present Neck/C-Spine: COMMON NORMALS: supple GENERAL: Yes normal visual inspection CERVICAL SPINE: No Cervical spine tenderness Resp: COMMON NORMALS: normal respiratory effort, No retractions, No use of accessory muscles and clear to auscultation bilaterally AUSCULTATION: clear to auscultation bilaterally Cardio: COMMON NORMALS: regular rate, regular rhythm, S1 normal heart sound present, S2 normal heart sound present, No gallops present (Cardio), No clicks present (Cardio), No murmurs present (Cardio) and Peripheral pulses 2+ throughout RATE: regular rate RHYTHM: regular rhythm HEART SOUNDS: S1 normal heart sound present and S2 normal heart sound present PERIPHERAL PULSES: Peripheral pulses 2+ throughout GI: COMMON NORMALS: Normal to inspection, nondistended, normoactive bowel sounds present, Soft to palpation, non-tender and no masses PALPATION: Yes Soft to palpation : COMMON NORMALS: Yes no CVA tenderness BLADDER/KIDNEY EXAM: Yes no CVA tenderness Back/Pelvis: COMMON NORMALS: no CVA tenderness Extremity: COMMON NORMALS: normal to inspection Neuro: COMMON NORMALS: patient oriented x3, CN's II-XII intact bilaterally, moves all extremities, no focal motor deficits and no sensory deficits noted SENSORIUM/ORIENTATION: Yes alert SENSORY EXAM: Yes extremities (intact) MOTOR EXAM: 5/5 motor strength present throughout Skin: GENERAL SKIN EXAM: dry skin Course Vital Signs: Vital signs: Vital Signs Temperature 98.0 F 07/03/20 15:47 Pulse Rate 74 07/03/20 18:40 Respiratory Rate 20 H 07/03/20 18:40 Blood Pressure 157/91 07/03/20 18:40 Pulse Oximetry 96 07/03/20 18:40 Discharge Plan Discharge Patient Disposition: Home Clinical Impression: Fall Qualifiers: Encounter type: initial encounter Qualified Code(s): W19.XXXA - Unspecified fall, initial encounter Contusion of sacrum Qualifiers: Encounter type: initial encounter Qualified Code(s): S30.0XXA - Contusion of lower back and pelvis, initial encounter Headache Qualifiers: Headache type: post-traumatic Headache chronicity pattern: acute headache Intractability: not intractable Qualified Code(s): G44.319 - Acute post- traumatic headache, not intractable Condition: Stable Prescriptions: No Action lisinopril 20 mg tablet 20 mg PO DAILY RF: 0 famotidine 20 mg tablet 20 mg PO BID RF: 0 rosuvastatin 10 mg tablet 10 mg PO DAILY RF: 0 multivitamin [Multiple Vitamins] Tablet 1 tab PO DAILY RF: 0 vitamin E 1,000 unit Capsule 1,000 unit PO DAILY RF: 0 cyanocobalamin (vitamin B-12) [Vitamin B-12] 1,000 mcg Tablet 1,000 mcg PO DAILY RF: 0 acetaminophen [Tylenol Arthritis Pain] 650 mg Tablet Extended Release 1,300 mg PO TID PRN (Reason: Pain) RF: 0 calcium carbonate [Calcium 500] 500 mg calcium (1,250 mg) Tablet 500 mg PO DAILY RF: 0 pyridoxine (vitamin B6) [Vitamin B-6] 100 mg Tablet 50 mg PO DAILY RF: 0 potassium chloride 20 mEq tablet extended release 20 meq PO DAILY Qty: 7 RF: 0 aspirin 81 mg Tablet,Delayed Release (Dr/Ec) 81 mg PO DAILY Qty: 30 RF: 0 levothyroxine [Synthroid] 200 mcg tablet 250 mcg PO DAILY Qty: 30 RF: 0 furosemide [Lasix] 20 mg tablet 40 mg PO DAILY Qty: 60 RF: 0 Discharge Orders: Discharge ED (Routine); Ordered 07/03/20 Ordered By: Nelda Lema Referrals: Ruben Rodriguez MD [Primary Care Provider] - Discharge Diet: Usual diet Discharge Activity: Limit activity as instructed Patient Instructions: Acute Headache (ED), Contusion in Adults (ED), Fall Prevention (ED) Activity Restrictions/Additional Instructions: Return to the emergency department for the worst headache of your life or other concerning symptoms Continue Tylenol as needed for pain Cool compresses, alternate with warm moist heat to help with pain Take it easy over the next couple of days. Sign Out Sign Out Data: Patient Sign Out occurred on 07/03/20 at 17:09. Patient's care was discussed, and care was transferred from to PIERCE Reynolds. Coding Level of Care Code ED Supply Chain Design Manager for Chg Fwd Exam Comprehensive Documented by User: PIERCE Reynolds 07/03/20 19:18 HPI - Fall General: Chief Complaint: Fall Stated Complaint: FALL Time Seen by Provider: 07/03/20 15:11 PFSH ED PFSH: Medical History (Updated 07/03/20 @ 18:17 by PIERCE Reynolds) Congestive heart failure COPD (chronic obstructive pulmonary disease) CVA (cerebral vascular accident) Dyslipidemia Hypertension Hypothyroidism Irritable bowel syndrome Peptic ulcer disease Pulmonary hypertension Surgical History H/O total hysterectomy S/P breast biopsy S/P cholecystectomy Family History Other Mesothelioma Social History Smoking and tobacco status: former smoker Alcohol intake: never Household members: spouse Housing: House Course ED course: 79-year-old female patient presents to the emergency department status post fall. She reports tripped over her oxygen tubing at home. She is complaining of sacral pain and headache status post fall. She reports did not hit her head and did not lose consciousness. Received patient from DIANE Aponte. CT scan pending at the time of transfer of care. CT head negative for acute findings, sacral x-rays negative. She is able to bear weight without difficulty in the ED. No deviation from neurological baseline. She is ready to go home, spouse at bedside. Vital Signs: Vital signs: Vital Signs Temperature 98.0 F 07/03/20 15:47 Pulse Rate 74 07/03/20 18:40 Respiratory Rate 20 H 07/03/20 18:40 Blood Pressure 157/91 07/03/20 18:40 Pulse Oximetry 96 07/03/20 18:40 MDM - Fall Imaging Data^: CT Head: Radiologist's impression: [facility] [address] [address] CT Scan Report Signed Patient: Deja Russell Unit #: [id number] : 1940 Age/Sex: 79 / F ADM Date: 07/03/20 Loc: ER Room/Bed: Attending Dr: Ordering Provider/Ordering MD: Jj Mistry Date of Service: 07/03/20 Procedure(s): CT head wo con* [id number] Accession Number(s): [id number] Report Number: [id number] PROCEDURE INFORMATION: Exam: CT Head Without Contrast Exam date and time: 07/03/2020 3:33 PM Age: 79 years old Clinical indication: Injury or trauma; Fall; Blunt trauma (contusions or hematomas); Consciousness not specified; Injury date: 07/03/2020; Injury details: Fell this am, no complaints at this time; Additional info: Fall, headache TECHNIQUE: Imaging protocol: Computed tomography of the head without contrast. Total images: 189 Radiation optimization: All CT scans at this facility use at least one of these dose optimization techniques: automated exposure control; mA and/or kV adjustment per patient size (includes targeted exams where dose is matched to clinical indication); or iterative reconstruction. COMPARISON: CT head wo con* [id number] 05/06/2020 9:13 AM RADIATION DOSE METRICS: Total DLP (mGy-cm): 771.3 FINDINGS: Brain: No evidence of active or acute intracranial pathologic process, hemorrhage, or trauma. No visible evidence of diffuse cerebral edema or generalized demyelination. Mild small vessel ischemic disease with senile periventricular leukomalacia. Cerebral and cerebellar atrophy with ventricular dilatation not inconsistent with the patient's advanced chronological age. No mass effect. No midline shift. Cerebral ventricles: No ventriculomegaly. Bones/joints: Unremarkable. No acute fracture. Paranasal sinuses: Visualized sinuses are unremarkable. No fluid levels. Mastoid air cells: Mild chronic right mastoiditis. Soft tissues: Unremarkable. CT/CT head wo con* [id number] IMPRESSION: No evidence of active or acute intracranial pathologic process, hemorrhage, or trauma. Radiation Dose CTDIVOL = (mGy): DLP = 771.3 (mGy-cm) Dictated By: Tapan Oswald Signed By: Tapan Oswald Signed Date/Time: 07/03/201735 DD/ 33 Other Xray: Radiologist's impression: [address] [address] XRay Report Signed Patient: Deja Russell Unit #: [id number] : 1940 Age/Sex: 79 / F ADM Date: 07/03/20 Loc: ER Room/Bed: Attending Dr: Ordering Provider/Ordering MD: Jj Mistry Date of Service: 07/03/20 Procedure(s): XR sacrum coccyx min 2V 13539 Accession Number(s): [id number] Report Number: [id number] PROCEDURE INFORMATION: Exam: XR Sacrum and Coccyx, 2 or More Views Exam date and time: 07/03/2020 4:32 PM Age: 79 years old Clinical indication: Injury or trauma; Fall; Blunt trauma (contusions or hematomas) TECHNIQUE: Imaging protocol: XR of the sacrum and coccyx, 2 or more views. Total images: 3 COMPARISON: CR XR pelvis 1-2V* [id number] 04/24/2020 9:41 PM FINDINGS: Bones/joints: No visible fracture. Degenerative disease and degenerative disc disease of visualized lumbosacral spine with facet arthrosis. No visible spondylolysis or spondylolisthesis. No visible pelvic fracture within the field of views. Soft tissues: Unremarkable. Vasculature: Arteriosclerosis. XR/XR sacrum coccyx min 2V [id number] IMPRESSION: Nonacute. Dictated By: Tapan Oswald Signed By: Tapan Oswald Signed Date/Time: 07/03/201752 DD/ 50 Discharge Plan Discharge Patient Disposition: Home Clinical Impression: Fall Qualifiers: Encounter type: initial encounter Qualified Code(s): W19.XXXA - Unspecified fall, initial encounter Contusion of sacrum Qualifiers: Encounter type: initial encounter Qualified Code(s): S30.0XXA - Contusion of lower back and pelvis, initial encounter Headache Qualifiers: Headache type: post-traumatic Headache chronicity pattern: acute headache Intractability: not intractable Qualified Code(s): G44.319 - Acute post- traumatic headache, not intractable Condition: Stable Prescriptions: No Action lisinopril 20 mg tablet 20 mg PO DAILY RF: 0 famotidine 20 mg tablet 20 mg PO BID RF: 0 rosuvastatin 10 mg tablet 10 mg PO DAILY RF: 0 multivitamin [Multiple Vitamins] Tablet 1 tab PO DAILY RF: 0 vitamin E 1,000 unit Capsule 1,000 unit PO DAILY RF: 0 cyanocobalamin (vitamin B-12) [Vitamin B-12] 1,000 mcg Tablet 1,000 mcg PO DAILY RF: 0 acetaminophen [Tylenol Arthritis Pain] 650 mg Tablet Extended Release 1,300 mg PO TID PRN (Reason: Pain) RF: 0 calcium carbonate [Calcium 500] 500 mg calcium (1,250 mg) Tablet 500 mg PO DAILY RF: 0 pyridoxine (vitamin B6) [Vitamin B-6] 100 mg Tablet 50 mg PO DAILY RF: 0 potassium chloride 20 mEq tablet extended release 20 meq PO DAILY Qty: 7 RF: 0 aspirin 81 mg Tablet,Delayed Release (Dr/Ec) 81 mg PO DAILY Qty: 30 RF: 0 levothyroxine [Synthroid] 200 mcg tablet 250 mcg PO DAILY Qty: 30 RF: 0 furosemide [Lasix] 20 mg tablet 40 mg PO DAILY Qty: 60 RF: 0 Discharge Orders: Discharge ED (Routine); Ordered 07/03/20 Ordered By: Nelda Lema Referrals: Ruben Rodriguez MD [Primary Care Provider] - Discharge Diet: Usual diet Discharge Activity: Limit activity as instructed Patient Instructions: Acute Headache (ED), Contusion in Adults (ED), Fall Prevention (ED) Activity Restrictions/Additional Instructions: Return to the emergency department for the worst headache of your life or other concerning symptoms Continue Tylenol as needed for pain Cool compresses, alternate with warm moist heat to help with pain Take it easy over the next couple of days. Sign Out Sign Out Data: Patient Sign Out occurred on 07/03/20 at 17:09. Patient's care was discussed, and care was transferred from to Nelda Violeta Pool, SCUDDING INSPECTOR. Coding Level of Care Code ED Supply Chain Design Manager for Chg Fwd Exam Comprehensive
[2020-07-03 15:47] VITALS: BP 157/80; PULSE 84; RESP 18; TEMP 36.7; O2SAT 95; BMI 52.3
[2020-07-03 17:00] VITALS: BP 157/91; PULSE 74; RESP 22; O2SAT 96
[2020-07-03 18:40] VITALS: BP 157/91; PULSE 74; RESP 20; O2SAT 96
== END 2020-07-03 18:45 | disposition home or self-care (01) ==
PROVIDERS: Emergency Provider Nurse Practitioner Family; PCP Family Medicine
DX: S30.0XXA Contusion of lower back and pelvis, initial encounter (principal); G44.319 Acute post-traumatic headache, not intractable; Z79.82 Long term (current) use of aspirin; W18.09XA Striking against other object with subsequent fall, initial encounter; J44.9 Chronic obstructive pulmonary disease, unspecified; I11.0 Hypertensive heart disease with heart failure; I50.9 Heart failure, unspecified; Z86.73 Personal history of transient ischemic attack (TIA), and cerebral infarction without residual deficits; E78.5 Hyperlipidemia, unspecified; Z87.891 Personal history of nicotine dependence
CPT/HCPCS: 12345; 70450; 72220; 99281; 99283

== ENCOUNTER 2020-07-23 14:05 | Inpatient (IN) | payer MEDICARE, BC, SELFPAY ==
[2020-07-23] VITALS (14 sets, daily range): BP systolic 111–191; BP diastolic 59–118; PULSE 84–116; RESP 9–44; TEMP 36.5–37.2; O2SAT 61–97; BMI 38.3
--- NOTE | 2020-07-23 | CT_ITS ---
WS: [id number] CT HEAD TECHNIQUE: Noncontrast CT of the head obtained from the skullbase to the vertex. CLINICAL INFORMATION: STROKE LIKE SYMPTOMS COMPARISON: July 03, 2020 DLP: [address] scans at [facility] use at least one of these dose optimization techniques: automat ed exposure control; mA and/or kV adjustment per patient size (includes targeted exams where dose is matched to clinical indication); or iterative reconstruction. FINDINGS: No evidence of intracranial hemorrhage or mass effect. Ventricular system and basal cisterns are ge nt. Moderate small vessel changes with moderate parenchymal volume loss. No extra-axial fluid collect ions. No evidence of mass or mass effect. Mucosal thickening right mastoid air cells. Left mastoid air cells are well aerated. Paranasal sinuse s are well aerated. CT/CT head wo con* [id number] IMPRESSION: 1. No evidence of intracranial hemorrhage or mass effect. 2. Moderate small vessel changes with moderate parenchymal volume loss. 3. Mild mucosal thickening in the right greater than left mastoid air cells. Notified Sanjeev Garduno DO at 07/23/2020 2:28 PM.
--- NOTE | 2020-07-23 14:18 | CT_ITS ---
WS: [id number] CTA HEAD AND NECK TECHNIQUE: Contrast enhanced CTA of the head and neck with coronal and sagittal reformatted images an d maximum intensity projection (MIP) images. NASCET criteria utilized. CLINICAL INFORMATION: acute CVA COMPARISON: CT head earlier today DLP: 2708.[address] scans at [facility] use at least one of these dose optimization techniques: automat ed exposure control; mA and/or kV adjustment per patient size (includes targeted exams where dose is matched to clinical indication); or iterative reconstruction. FINDINGS: RIGHT: Right common carotid artery is patent. No significant right ICA stenosis. Right ICA is patent to the skull base. Tortuous right cervical ICA. LEFT: Left common carotid artery is patent. No significant left ICA stenosis. Moderate calcified athe romatous disease left carotid bulb extending into the ICA. Less than 50% left ICA stenosis. Left ICA is patent to the skull base. INTRACRANIAL CTA: Left gaze preference Both vertebral arteries are patent. Proximal basilar artery is patent. Patent right posterior communi cating artery. Normal vascularity to the [place] territory bilaterally. Normal vascularity to the FLAQUITO and MCA territories bilaterally. No evidence of high-grade proximal den nosis. Moderate spondylitic changes cervical spine. CT/CT angio headneck* [id number] IMPRESSION: 1. No significant right ICA stenosis. Less than 50% left ICA stenosis. 2. Unremarkable intracranial CTA. No evidence of high-grade proximal stenosis. 3. Normal vascularity to the FLAQUITO and MCA territories bilaterally. 4. Basilar artery is patent. Notified Sanjeev Garduno DO at 07/23/2020 3:18 PM.
--- NOTE | 2020-07-23 14:18 | XRR_ITS ---
PROCEDURE INFORMATION: Exam: XR Chest, 1 View Exam date and time: 07/23/2020 2:35 PM Age: 79 years old Clinical indication: Dyspnea; Patient HX: Unable to obtain history; Additional info: Dyspnea, AMS TECHNIQUE: Imaging protocol: XR of the chest Views: Frontal portable upright view of the chest. COMPARISON: CR XR chest 1V portable [id number] 04/24/2020 9:44 PM FINDINGS: Tubes, catheters and devices: EKG leads are present overlying the chest. Lungs: Moderate pulmonary hypoexpansion. The pulmonary vasculature is exaggerated by inspiratory volume. Mild left basilar and right parahilar pulmonary subsegmental atelectasis. Pleural space: No pleural effusion. No pneumothorax. Heart/Mediastinum: Stable borderline cardiomegaly. Mediastinum: Stable. Bones/joints: Moderate aortic arch and descending thoracic aortic atherosclerotic calcification without ectasia. Stable. Organs: The gallbladder is likely surgically absent, with metallic clips overlying the gallbladder fossa. XR/XR chest 1V portable [id number] IMPRESSION: 1. Moderate pulmonary hypoexpansion. 2. Mild left basilar and right parahilar pulmonary subsegmental atelectasis. 3. Prior cholecystectomy.
--- NOTE | 2020-07-23 14:19 | ECG_ITS ---
[facility] Test Date: 2020-07-23 Pat Name: Deja Russell Department: Room: Gender: Female Behavioral Health Tech: : 1940 Requested By: Sanjeev Cortez Order Number: [id number] Shaheed MD: Gely Roche M.D. Measurements Intervals [place] Rate: 94 P: 44 AR: 158 QRS: 101 QRSD: 162 T: -47 QT: 411 QTc: 514 Interpretive Statements SINUS RHYTHM POSSIBLE LEFT ATRIAL ENLARGEMENT [-0.1mV P WAVE IN V1/V2] RIGHT AXIS DEVIATION [QRS AXIS > 100] INTRAVENTRICULAR CONDUCTION DELAY [130+ ms QRS DURATION] Compared to ECG 04/24/2020 23:25:53 Intraventricular conduction delay now present Right bundle-branch block no longer present T-wave abnormality no longer present Possible ischemia no longer present Electronically Signed On 07-23-2020 20:19:54 GROCERY CLERK MARKING by Gely Roche M.D. [email or web address]
--- NOTE | 2020-07-23 14:20 | CTR_ITS ---
PROCEDURE INFORMATION: Exam: CT Abdomen And Pelvis With Contrast Exam date and time: 07/23/2020 3:56 PM Age: 79 years old Clinical indication: Bloating; Patient HX: PT came in with acute stroke s/s. Does not speak or follow commands. Best images possible; Additional info: Abd pain/distention TECHNIQUE: Imaging protocol: Computed tomography of the abdomen and pelvis with intravenous contrast. Radiation optimization: All CT scans at this facility use at least one of these dose optimization techniques: automated exposure control; mA and/or kV adjustment per patient size (includes targeted exams where dose is matched to clinical indication); or iterative reconstruction. Contrast material: VISI 320; Contrast volume: 95 ml; Contrast route: INTRAVENOUS (IV); COMPARISON: CR XR pelvis 1-2V* [id number] 04/24/2020 9:41 PM RADIATION DOSE METRICS: Total DLP (mGy-cm): 1769.03 FINDINGS: Lungs: Bibasilar dependent mild pulmonary partial atelectasis is present. Liver: Mild intrahepatic biliary ductal dilatation. Gallbladder and bile ducts: The gallbladder is surgically absent, with metallic clips in the gallbladder fossa. The extrahepatic bile ducts are mildly dilated for age, measuring 10.7 mm. No ductal calculus. Pancreas: The pancreas is normal. No pancreatic mass or ductal dilatation identified. Moderate pancreatic atrophy. Spleen: Normal. No splenomegaly. Adrenal glands: 16.1 mm left adrenal nodule. Kidneys and ureters: 13 mm medial left renal upper pole probable benign cyst. No specific followup required/recommended. Mild bilateral extrarenal renal pelviectasis, a normal variant. Excreted contrast in the collecting systems limits assessment for renal caliceal calculi. Stomach and bowel: A lateral cecal colonic diverticulum is present without evidence of diverticulitis. Moderate rectal, mild transverse and descending colonic constipation. Appendix: The vermiform appendix is normal. Intraperitoneal space: Unremarkable. No free air. No significant fluid collection. Vasculature: Moderate aortic valvular calcification is present. Moderate aortic atherosclerotic calcification without aneurysm. The iliac arteries show moderate bilateral atherosclerotic calcifications without evidence of aneurysm. Lymph nodes: No enlarged lymph nodes. Urinary bladder: The urinary bladder is drained by a Jackson catheter. Reproductive: The uterus is status post hysterectomy. Nonspecific left adnexal 5.6 x 4.3 by 4.3 cm cystic/solid and partially calcified lesion, with possible small foci of macroscopic fat. Bones/joints: Bilateral lower lumbar facet primary osteoarthritis. L4-L5 and posterior L5-S1 degenerative disc disease. Mild L4-L5 spondylosis. Mild chronic L1 vertebral body compression deformity. Moderate T12-L1 spondylosis. Mild-moderate chronic superior T11 vertebral body endplate depression. Soft tissues: Inferior right breast benign macro calcifications. Multiple surgical clips subjacent to the 4th portion duodenum. Other findings: Streak artifact is present from the patient's arms at the side. CT/CT abdomen pelvis w con* [id number] IMPRESSION: 1. Post cholecystectomy with mild extrahepatic and intrahepatic extrahepatic biliary ductal dilatation. No ductal calculus identified. 2. Prior hysterectomy. 3. Nonspecific left adnexal mass (atypical dermoid tumor?). 4. Left adrenal nodule. Recommend further evaluation with precontrast CT, or MRI. 5. Diverticulosis. 6. Moderate rectal, mild transverse and descending colonic constipation. 7. Multiple surgical clips subjacent to the 4th portion duodenum. COMMENTS: Consistent with the [employer]'s Incidental Findings Committee white paper (J Am Lilly Radiol 2018): Any incidental renal lesion less than 1 cm or classified as too small to characterize, or any incidental cystic renal lesion characterized as simple-appearing, is likely benign. No follow-up imaging is recommended for these lesions per consensus recommendations based on imaging criteria. Radiation Dose CTDIVOL = (mGy): DLP = 1769.03 (mGy-cm)
[2020-07-23 14:37] LABS: Basophils # 0.1 10^3/uL (0.0-0.1); Basophils % 0.6 %; Eosinophils # 0.1 10^3/uL (0.0-0.8); Eosinophils % 0.8 %; Hematocrit 46.5 % (37.0-47.0); Hemoglobin 14.1 g/dL (11.5-15.3); Lymphocytes % 6.5 %; Mean Corpuscular HGB Conc 30.3 g/dL (30.0-36.0); Mean Corpuscular Hemoglobin 28.3 pg (28.0-34.0); Mean Corpuscular Volume 93.2 fL (81-99); Mean Platelet Volume 10.8 fL (7.4-10.4); Monocytes % 6.4 %; Neutrophils # 13.56 10^3/uL (1.8-7.7); Neutrophils % 85.2 %; Nucleated Red Blood Cells % 0 %; Platelet Count 315 10^3/cmm (130-400); Red Blood Count 4.99 10^6/uL (4.1-5.3); White Blood Count 15.9 10^3/uL (4.0-10.0)
--- NOTE | 2020-07-23 14:43 | ED_ITS ---
HPI - Altered Mental Status General: Chief Complaint: Altered Mental Status Stated Complaint: AMS Time Seen by Provider: 07/23/20 14:07 History of Present Illness: HPI narrative: 79-year-old female presents to the emergency room via EMS. She was last seen well around 9:00 this morning by her and he returned to home she was nonresponsive with a fixed gaze to the left in her chair with her head extended. This was around noon. She arrives here at approximately 2 PM. She is unresponsive she will cry out in pain with painful stimuli or procedure such as IV starts but makes no verbal responses. She has a hard fixed gaze to the left with head turn to the left as well. No fever she is requiring 4 L by nasal cannula. EMS reports in the field she was 84% on room air. MD complaint: altered mental status and decreased responsiveness Onset (ago): hour(s) Time: 09:00 Timing confirmed by: spouse Severity: severe Consistency of symptoms: Getting Worse Context: COPD and other (htn) Review of Systems General: Reports: ROS unobtainable due to medical condition GI: Denies: melena PFSH ED PFSH: Medical History (Updated 07/23/20 @ 17:18 by Sanjeev Garduno DO) Congestive heart failure COPD (chronic obstructive pulmonary disease) CVA (cerebral vascular accident) Dyslipidemia Hypertension Hypothyroidism Irritable bowel syndrome Peptic ulcer disease Pulmonary hypertension Surgical History H/O total hysterectomy S/P breast biopsy S/P cholecystectomy Family History Other Mesothelioma Social History Smoking and tobacco status: former smoker Alcohol intake: never Household members: spouse Housing: House Physical Exam HENMT: COMMON NORMALS: normocephalic and atraumatic HEAD & SCALP: normocephalic and atraumatic Neck/C-Spine: COMMON NORMALS: no JVD Resp: COMMON NORMALS: normal respiratory effort, No retractions, No use of accessory muscles and clear to auscultation bilaterally AUSCULTATION: clear to auscultation bilaterally Cardio: COMMON NORMALS: no JVD, regular rate, regular rhythm and No murmurs present (Cardio) RATE: regular rate RHYTHM: regular rhythm GI: INSPECTION: Yes abdominal distension and Yes central obesity PALPATION: Yes Tenderness to palpation present (GI) and No Guarding due to palpation present (GI) PERCUSSION: tympanic to percussion Extremity: COMMON NORMALS: normal to inspection, capillary refill normal, no clubbing, cyanosis or edema, no calf tenderness and no pedal edema Course Vital Signs: Vital signs: Vital Signs Temperature 99.0 F 07/23/20 14:05 Pulse Rate 91 07/23/20 14:05 Respiratory Rate 24 H 07/23/20 14:05 Blood Pressure 191/118 07/23/20 14:05 Pulse Oximetry 61 L 07/23/20 15:34 MDM - Altered Mental Status MDM Narrative: Medical decision making narrative: Patient rapidly deteriorated while we are in the midst of the work-up she desatted into the 70s nursing staff alerted me we went in the room and prepared to intubate her since she was still listed as a full code on her chart. I had reservations about this and we were able to get a hold of her who had just arrived in the waiting room. We talked to him and he stated he wanted to make her a Do Not Recussitate she did not want any heroic measures and certainly did not want to be on a ventilator. We will continue to work the patient up for possible treatable causes of this episode but they do not want her intubated and they do not want her resuscitated if she continues to deteriorate. 164 - Patient continues to do poorly. She has now begun seizing. Her oxygen stats on 15 L by nonrebreather in the upper 80s. She is tachycardic. EKG did not show any ST elevation were still waiting on some of her labs. It does appear she has a bladder infection discussed with the again he does not want us to do anything aggressive he is okay with us treating with antibiotics but does not wish any kind of aggressive intervention he still opposed to intubation. My suspicion is that she has had a stroke she also looks like she has a minor bladder infection on think that is what is driving these problems. Discussed this with him, he asked that we provide comfort cares. Lab Data: Labs: Lab Results 07/23/20 07/23/20 07/23/20 Range/Units 14:29 14:29 14:29 WBC 15.9 H (4.0-10.0) 10^3/ uL RBC 4.99 (4.1-5.3) 10^6/u L Hgb 14.1 (11.5-15.3) g/dL Hct 46.5 (37.0-47.0) % MCV 93.2 (81-99) fL MCH 28.3 (28.0-34.0) pg MCHC 30.3 (30.0-36.0) g/dL RDW 13.0 (12.1-15.1) % Plt Count 315 (130-400) 10^3/c mm MPV 10.8 H (7.4-10.4) fL Neut % (Auto) 85.2 % Lymph % (Auto) 6.5 % [place] % (Auto) 6.4 % Eos % (Auto) 0.8 % Baso % (Auto) 0.6 % Neut # (Auto) 13.56 H (1.8-7.7) 10^3/u L Lymph # (Auto) 1.0 (0.8-4.8) 10^3/u L [place] # (Auto) 1.0 H (0.2-0.9) 10^3/u L Eos # (Auto) 0.1 (0.0-0.8) 10^3/u L Baso # (Auto) 0.1 (0.0-0.1) 10^3/u L Nucleated RBC % (a uto) 0 % Nucleated RBCs # 0.0 /100WBC PT 13.20 (12.1-14.9) SECO NDS INR 0.97 (0.8-1.2) APTT 27.8 (23.9-36.7) SECO NDS Sodium 139 (136-145) mmol/L Potassium 3.9 (3.5-5.1) mmol/L Chloride 94 L (98-107) mmol/L Carbon Dioxide 38 H (22-29) mmol/L Anion Gap 10.9 (5-19) BUN 17 (8-23) mg/dL Creatinine 0.7 (0.5-0.9) mg/dL GFR Calculation Not Reportable Glucose 152 H (65-115) mg/dL Calculated Osmolal ity 293 (285-295) mOsm/k g Calcium 10.1 (8.5-10.5) mg/dL Total Bilirubin 0.5 (0.15-1.2) mg/dL AST 16 (0-32) U/L ALT 10 (0-33) U/L Alkaline Phosphata se 66 (35-105) IU/L Total Protein 7.5 (6.6-8.7) g/dL Albumin 3.8 (3.5-5.2) g/dL Globulin 3.7 (1.3-4.6) g/dL Urine Color (Yellow) Urine Appearance (CLEAR) Urine pH (5-7) Ur Specific Gravit y (1.005-1.030) Urine Protein (Negative) Urine Glucose (UA) (Normal) Urine Ketones (Negative) Urine Blood (Negative) Urine Nitrate (Negative) Urine Bilirubin (Negative) Prot Sulfosalicyli c Acd (Negative) Urine Urobilinogen (Negative) mg/dL Ur Leukocyte Shazia ase (Negative) Urine RBC (0-2) /hpf Urine WBC (0-5) /hpf Ur Squamous Epith Cells (0-5) /hpf Amorphous Sediment Urine Bacteria (NONE) /hpf Hyaline Casts /lpf Urine Opiates Scre en (Negative) ng/mL Ur Barbiturates Sc reen (Negative) ng/mL Ur Phencyclidine S crn (Negative) ng/mL Ur Amphetamines Sc reen (Negative) ng/mL U Benzodiazepines Scrn (Negative) ng/mL Urine Cocaine Scre en (Negative) ng/mL U Marijuana (THC) Screen (Negative) ng/mL Ethyl Alcohol < 10 (0-10) mg/dL 07/23/20 07/23/20 Range/Units 15:09 15:09 WBC (4.0-10.0) 10^3/ uL RBC (4.1-5.3) 10^6/u L Hgb (11.5-15.3) g/dL Hct (37.0-47.0) % MCV (81-99) fL MCH (28.0-34.0) pg MCHC (30.0-36.0) g/dL RDW (12.1-15.1) % Plt Count (130-400) 10^3/c mm MPV (7.4-10.4) fL Neut % (Auto) % Lymph % (Auto) % [place] % (Auto) % Eos % (Auto) % Baso % (Auto) % Neut # (Auto) (1.8-7.7) 10^3/u L Lymph # (Auto) (0.8-4.8) 10^3/u L [place] # (Auto) (0.2-0.9) 10^3/u L Eos # (Auto) (0.0-0.8) 10^3/u L Baso # (Auto) (0.0-0.1) 10^3/u L Nucleated RBC % (a uto) % Nucleated RBCs # /100WBC PT (12.1-14.9) SECO NDS INR (0.8-1.2) APTT (23.9-36.7) SECO NDS Sodium (136-145) mmol/L Potassium (3.5-5.1) mmol/L Chloride (98-107) mmol/L Carbon Dioxide (22-29) mmol/L Anion Gap (5-19) BUN (8-23) mg/dL Creatinine (0.5-0.9) mg/dL GFR Calculation Glucose (65-115) mg/dL Calculated Osmolal ity (285-295) mOsm/k g Calcium (8.5-10.5) mg/dL Total Bilirubin (0.15-1.2) mg/dL AST (0-32) U/L ALT (0-33) U/L Alkaline Phosphata se (35-105) IU/L Total Protein (6.6-8.7) g/dL Albumin (3.5-5.2) g/dL Globulin (1.3-4.6) g/dL Urine Color Yellow (Yellow) Urine Appearance Sl hazy (CLEAR) Urine pH 8 H (5-7) Ur Specific Gravit y 1.015 (1.005-1.030) Urine Protein 2+ H (Negative) Urine Glucose (UA) Norm (Normal) Urine Ketones Negative (Negative) Urine Blood Neg (Negative) Urine Nitrate Negative (Negative) Urine Bilirubin Neg (Negative) Prot Sulfosalicyli c Acd Positive (Negative) Urine Urobilinogen Norm (Negative) mg/dL Ur Leukocyte Shazia ase Trace H (Negative) Urine RBC 0-4 H (0-2) /hpf Urine WBC 25-40 H (0-5) /hpf Ur Squamous Epith Cells 0-4 H (0-5) /hpf Amorphous Sediment Not Reportable Urine Bacteria 2+ H (NONE) /hpf Hyaline Casts 0-4 H /lpf Urine Opiates Scre en Negative (Negative) ng/mL Ur Barbiturates Sc reen Negative (Negative) ng/mL Ur Phencyclidine S crn Negative (Negative) ng/mL Ur Amphetamines Sc reen Negative (Negative) ng/mL U Benzodiazepines Scrn Negative (Negative) ng/mL Urine Cocaine Scre en Negative (Negative) ng/mL U Marijuana (THC) Screen Negative (Negative) ng/mL Ethyl Alcohol (0-10) mg/dL Discharge Plan Discharge Patient Disposition: Admitted As Inpatient Clinical Impression: Acute CVA (cerebrovascular accident), COPD (chronic obstructive pulmonary disease), New onset seizure, Cystitis Condition: Stable Coding Level of Care Code 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
[2020-07-23] MEDS: iodixanol 320 mg/mL 100mL Btl IV ×2 (14:44→16:07)
[2020-07-23 14:47] LABS: INR 0.97 (0.8-1.2)
[2020-07-23 14:48] LABS: Partial Thromboplastin Time 27.8 SECONDS (23.9-36.7)
[2020-07-23 15:03] LABS: Alanine Aminotransferase 10 U/L (0-33); Albumin Level 3.8 g/dL (3.5-5.2); Alkaline Phosphatase 66 IU/L (35-105); Anion Gap 10.9 (5-19); Aspartate Amino Transferase 16 U/L (0-32); Blood Urea Nitrogen 17 mg/dL (8-23); Calcium 10.1 mg/dL (8.5-10.5); Carbon Dioxide 38 mmol/L (22-29); Chloride 94 mmol/L (98-107); Globulin 3.7 g/dL (1.3-4.6); Glucose 152 mg/dL (65-115); Osmolality Calculated 293 mOsm/kg (285-295); Potassium 3.9 mmol/L (3.5-5.1); Sodium 139 mmol/L (136-145); Total Bilirubin 0.5 mg/dL (0.15-1.2); Total Protein 7.5 g/dL (6.6-8.7)
[2020-07-23 15:04] LABS: Alcohol Level < 10 mg/dL (0-10)
--- NOTE | 2020-07-23 15:31 | PC.NURSE ---
Pt saturations to drop down to 60s with good waveform, pt placed on 15L NRB mask with improvement to 79%. Dr Garduno at bedside for intubation.
--- NOTE | 2020-07-23 15:35 | PC.NURSE ---
RT at bedside with ventilator. ETT set up at bedside.
--- NOTE | 2020-07-23 15:38 | PC.NURSE ---
Dr Garduno spoke with pt's and decided to make pt a DNR prior to intubation.
[2020-07-23 15:44] LABS: Specific Gravity, Urine 1.015 (1.005-1.030); Urine Appearance SL Hazy (CLEAR); Urine Color Yellow (Yellow); pH Urine 8 (5-7)
[2020-07-23 15:45] LABS: Add Urine Microscopic? YES; Bilirubin Urine Neg (Negative); Blood Urine Neg (Negative); Glucose Urine UA Norm (Normal); Ketones Urine Negative (Negative); Leukocyte Esterase Urine Trace (Negative); Nitrate Urine Negative (Negative); Protein Urine 2+ (Negative); Sulfosalicylic Acid Urine Positive (Negative); Urobilinogen Urine Norm (Negative)
[2020-07-23 15:46] LABS: Bacteria Urine 2+ /hpf; RBC Urine 0-4 /hpf (0-2); Squamous Epithelial Cell Urine 0-4 /hpf (0-5); WBC Urine 25-40 /hpf (0-5)
[2020-07-23 15:47] LABS: Hyaline Casts Urine 0-4 /lpf
[2020-07-23 15:48] LABS: Add Urine Culture? Yes
[2020-07-23 15:49] LABS: Amphetamines Screen Urine Negative (Negative); Barbiturates Screen Urine Negative (Negative); Benzodiazepines Screen Urine Negative (Negative); Cocaine Screen Urine Negative (Negative); Opiate Screen Urine Negative (Negative); PCP Screen Urine Negative (Negative); THC Screen Urine Negative (Negative)
--- NOTE | 2020-07-23 15:55 | PC.NURSE ---
SPO2 dropped from 95% to 34%. Pulse rated dropped from 85 to 60 BPM during this episode. The NC was replaced with NRB at 15 lpm. Advanced airway equipment placed at bedside. RSI medications drawn into syringes. POX increased to 95%. The patient was advised of the patient's condition. Per EMD requests DNR status at this time.
--- NOTE | 2020-07-23 16:04 | PC.NURSE ---
Read and agree with assessment.
[2020-07-23] MEDS: LORazepam 2 mg/mL INJ 1 mL IVP (16:30)
--- NOTE | 2020-07-23 16:35 | ECG_ITS ---
[facility] Test Date: 2020-07-23 Pat Name: Deja Russell Department: Room: Gender: Female Abstract Writer: : 1940 Requested By: Sanjeev Cortez Order Number: [id number] Shaheed MD: Gely Roche M.D. Measurements Intervals [place] Rate: 113 P: 13 NV: 175 QRS: 104 QRSD: 153 T: -61 QT: 328 QTc: 450 Interpretive Statements SINUS TACHYCARDIA WITH OCCASIONAL VENTRICULAR PREMATURE COMPLEXES POSSIBLE LEFT ATRIAL ENLARGEMENT RIGHT AXIS DEVIATION [QRS AXIS > 100] RIGHT BUNDLE BRANCH BLOCK ST DEVIATION AND MARKED T-WAVE ABNORMALITY, CONSIDER INFERIOR ISCHEMIA Compared to ECG 07/23/2020 14:55:56 Ventricular premature complex(es) now present Right bundle-branch block now present T-wave abnormality now present Possible ischemia now present Sinus rhythm no longer present Intraventricular conduction delay no longer present Electronically Signed On 07-23-2020 20:18:31 PLANT BREEDER SCIENTIST by Gely Roche M.D. [id number]
--- NOTE | 2020-07-23 16:53 | PC.NURSE ---
Patient having difficulty maintaining airway. Head tilt jaw lift performed without success, Jaw thrust performed without success. NPA placed in the right nasal with good results.
[2020-07-23] MEDS: cefTRIAXone 1,000 MG in sodium chloride 0.9% (plus) 50 ML 100 MG IV (17:00)
--- NOTE | 2020-07-23 17:09 | PM.HP ---
Providers/Chief Complaint Primary Care Provider: Ruben Rodriguez MD Chief Complaint: AMS History of Present Illness Deja Russell is a 79 year old female with a past medical history of hypertension, hyperlipidemia, hypothyroidism, heart failure, sleep apnea, who is dependent on her for activities of daily living, he tells me that he cooks and cleans for her, she ambulates with a walker, she uses a chair lift, she hardly gets out of the house, she is alert oriented x3, has been for over 60 years, she was recently here in the hospital back in April for CHF and pneumonia. Patient's states that this morning, they will have breakfast together, nothing out of the ordinary, no complaints, no complaints of chest pain, chest palpitations, no complaints of weakness, no fevers, cough, no lightheadedness, dizziness, no strokelike symptoms, no weakness, slurring of her speech, no facial droop,, no seizures. No history of strokes in the past. No history of seizures. He went out to get groceries, came back at roughly 10 or so in the morning, and she was sitting in her motorized scooter, snoring, not responsive, call , But she did not respond. He tells me that she is gazing to the right, not responding, so he called EMS. EMS arrived, and brought her to [facility]. Patient arrived was [facility] at roughly 2 PM, her last known normal was 9, her NIH stroke scale was 28, GCS was 3, I was told she was nonresponsive, requiring up to 10 L, she had a forced gaze palsy to the right, she had a witnessed seizure episode in the emergency room, lasting roughly a minute, given her labored breathing the ER physician discussed with patient's about intubation given her desaturations into the low 80s on 10 L, he advised that he wanted to make her DNR/DNI, did not want aggressive interventions. Upon my arrival to the emergency room, patient's NIH stroke scale was 20, GCS was 3, she has a gaze palsy to the right, is does not respond to sternal rub, does not withdraw from pain, is on 10 L, O2 sats do drop into the low 80s at times, she is snoring, she is flaccid, nonresponsive, Babinski is downward going bilaterally. CT of the head did not show any acute intracranial hemorrhage. CTA of the head and neck did not show any acute blockage. EKG shows deep T waves in inferior leads, no atrial fibrillation events. Her echocardiogram her last visit, April showed an EF of 50 to 55%, grade 1 diastolic dysfunction, mild to moderate aortic valve stenosis. Moderate pulmonary hypertension. Blood pressure is 119/110, sinus tachycardia, saturating in the high 80s on 10 L, mild retractions, nasal flaring. I discussed the case with Dr. Hogue, clinically it seems as if patient has had a large brainstem stroke, with global symptoms, and has had seizures. Unfortunate patient is out of TPA window, and there is no lesion that could be retrieved through endovascular retrieval. She agreed, I have discussed briefly with patient's family, patient's about hospice, Dr. Hogue who agrees that is very reasonable option. We can certainly try some medical interventions which are nonaggressive such as aspirin, statin, seizure medications, fluids. I had a extensive discussion with patient's unfortunately looks like she is had a large brainstem stroke, with seizures, the likelihood of her having a meaningful recovery is fairly unlikely. She is now on 10 L, having mild retractions,, in mild respiratory distress. He does not want aggressive interventions, he does not want her to be intubated, he does not want chest compressions. Above all he wants her to remain comfortable, he is okay with comfort care. He is okay with nonaggressive medical interventions such as fluids, aspirin, statin, seizure medications. Advised of risks and benefits of comfort care, voiced understanding, all questions answered agreed to proceed. Advised patient's that the goal of comfort care is to make her as comfortable as possible, easing her pain, easing her suffering. Review of Systems General: Reports: ROS unobtainable due to medical condition Medications/Allergies Home Medications Medication Instructions Recorded Confirmed Last Taken Type acetaminophen [Tylenol Arthritis 1,300 mg PO TID PRN 08/16/19 07/23/20 08/14/19 History Pain] calcium carbonate [Calcium 500] 500 mg PO DAILY 08/16/19 07/23/20 05/05/20 History cyanocobalamin (vitamin B-12) 1,000 mcg PO DAILY 08/16/19 07/23/20 05/05/20 History [Vitamin B-12] famotidine 20 mg PO BID 08/16/19 07/23/20 05/05/20 History lisinopril 20 mg PO DAILY 08/16/19 07/23/20 05/05/20 History multivitamin [Multiple Vitamins] 1 tab PO DAILY 08/16/19 07/23/20 05/05/20 History potassium chloride 20 meq PO DAILY #7 tab 08/16/19 07/23/20 05/05/20 Rx pyridoxine (vitamin B6) [Vitamin 50 mg PO DAILY 08/16/19 07/23/20 05/05/20 History B-6] rosuvastatin 10 mg PO DAILY 08/16/19 07/23/20 05/05/20 History vitamin E 1,000 unit PO DAILY 08/16/19 07/23/20 05/05/20 History aspirin 81 mg PO DAILY #30 tab 04/26/20 07/23/20 05/05/20 Rx furosemide [Lasix] 40 mg PO DAILY #60 tab 04/26/20 07/23/20 05/05/20 Rx levothyroxine [Synthroid] 250 mcg PO DAILY #30 tab 04/26/20 07/23/20 05/05/20 Rx 250 mcg chlorthalidone 25 mg PO DAILY 07/23/20 07/23/20 Unknown History Allergies Allergy/AdvReac Type Severity Reaction Status Date / Time Penicillins Allergy ALGY-Rash Verified 05/06/20 09:52 PFSH Acute PFSH: Medical History (Updated 07/23/20 @ 17:25 by Kush Henriquez MD) Congestive heart failure COPD (chronic obstructive pulmonary disease) CVA (cerebral vascular accident) Dyslipidemia Hypertension Hypothyroidism Irritable bowel syndrome Peptic ulcer disease Pulmonary hypertension Surgical History H/O total hysterectomy S/P breast biopsy S/P cholecystectomy Family History Other Mesothelioma Social History Smoking and tobacco status: former smoker Alcohol intake: never Household members: spouse Housing: House Vitals/I&O/Wt Last Vital Signs Temp 99.0 F 07/23/20 14:05 Pulse 91 07/23/20 14:05 Resp 24 H 07/23/20 14:05 BP 191/118 07/23/20 14:05 Pulse Ox 61 L 07/23/20 15:34 Weight last 48 hrs Weight 99.79 kg Physical Exam Const: GENERAL APPEARANCE: disheveled NUTRITIONAL APPEARANCE: obese ORIENTATION/CONSCIOUSNESS: Yes patient obtunded; not awake, not oriented to person, not oriented to place and not oriented to time OTHER: GCS 3, NIH stroke scale 28 HENMT: COMMON NORMALS: normocephalic Eye: OTHER: Pupils are minimally reactive to light, face acute gaze palsy to the right Lymph: LYMPHATIC: no lymphadenopathy noted Chest: COMMONS NORMALS: normal inspection of the chest Resp: COMMON NORMALS: normal respiratory effort EFFORT & INSPECTION: Yes tachypneic and Yes retractions AUSCULTATION: wheezes Cardio: COMMON NORMALS: no JVD and regular rate RATE: tachycardic HEART SOUNDS: S1 normal heart sound present and S2 normal heart sound present GI: COMMON NORMALS: Normal to inspection, nondistended, normoactive bowel sounds present, Soft to palpation, non-tender and No hepatosplenomegaly present Extremity: COMMON NORMALS: capillary refill normal, no clubbing, cyanosis or edema and no pedal edema Neuro: POWER COMA SCALE: document GCS findings [place] coma scale eye opening: None [place] coma scale verbal response: None [place] coma scale motor response: None Power coma scale total score: 3 COMMON NORMALS: negative for patient oriented x3 and negative for moves all extremities SENSORIUM/ORIENTATION: Yes obtunded SPEECH: Total aphasia MOTOR EXAM: Motor abnormalities not present COORDINATION: other (Unable to perform) COMATOSE PATIENT: corneal reflex present, No response to noxious stimuli present and hand drop from over head - misses face OTHER: Does not respond to sternal rub, does not respond to name, flaccid in all extremities, does not withdraw from pain, Babinski downward going bilaterally, has a fixed gaze palsy to the right, pupils are somewhat reactive to light Urinary Catheter Management^: Jackson: Cath Placed During This Visit: no Data : 07/23/20 14:29 07/23/20 14:29 A&P Assessment and plan (1) Brainstem stroke: -NIH stroke scale 28, GCS 3, out of TPA window -With witnessed seizure in the ER -Currently in mild respiratory distress on 10 L Plan: -Admit to general medical floors on comfort care -Rectal aspirin, statin, Keppra, IV fluids, allow for permissive hypertension, head of bed elevated, aspiration cautions -Oxygen for comfort -Jackson catheter in place -Comfort care orders, morphine, Ativan, atropine -DNR/DNI -Patient is on comfort care -Patient's was at bedside, notified, agrees with plan, wants to keep updated Status: Acute (2) New onset seizure: Status: Acute (3) Cystitis: Status: Acute (4) Acute diastolic (congestive) heart failure: Status: Acute (5) COPD (chronic obstructive pulmonary disease): Status: Acute (6) Hypertension: Status: Acute (7) Dyslipidemia: Status: Acute Attestations Medical Necessity Statement*: Patient requires hospitalization, inpatient comfort care, greater than 2 midnights, for brainstem stroke, with seizures Coding Level of Care Code Acute Drum Puller for [facility] Diagnoses Brainstem stroke I63.9 New onset seizure R56.9 Cystitis N30.90 Acute diastolic (congestive) heart failure I50.31 COPD (chronic obstructive pulmonary disease) J44.9 Hypertension I10 Dyslipidemia E78.5
[2020-07-23 17:37] LABS: Troponin 5 2HR 60.54 ng/L (0-10)
[2020-07-23 17:38] LABS: Troponin(5th) Baseline 64 ng/L (0-10)
[2020-07-23 17:46] LABS: Troponin 5 2HR Delta -3.46 ABS# (0-10)
--- NOTE | 2020-07-23 18:34 | PC.NURSE ---
252-1. Room not ready. Attempted to call report. No answer .
[2020-07-23 21:11] LABS: Troponin 5 6HR 95.86 ng/L (0-10)
[2020-07-23 21:18] LABS: Troponin 5 6HR Delta 31.86 ng/L (0-12)
--- NOTE | 2020-07-23 21:30 | PC.NURSE ---
Report called to Krupa ARCHULETA at [phone]
--- NOTE | 2020-07-23 21:43 | PC.NURSE ---
ADMIT NOTE Pt received to floor from ER at 2114. Is unresposive. Did not respond to moving from gurney to bed. Pupils are constricted and no reaction noted. O2 i place at 15l per NRB mask. Has nasal trumpet in place to right nare. Sx set up at bedside. Side rails being padded per sz precautions. PIID intact to right ac area. Will be starting fluids at 100ml/hr rate. Jackson catheter intact and draining light danilo urine. went home and will be back early in the morning
[2020-07-23] MEDS: sodium chloride 0.9% 1,000 ML 100 ML IV (21:55)
[2020-07-23] MEDS: enoxaparin 40 mg/0.4 mL Syringe SUBCUT (21:55)
[2020-07-23] MEDS: clindamycin 600 MG/50 ML PREMIX 100 MG IV (22:15)
--- NOTE | 2020-07-23 23:25 | PC.NURSE ---
TELEMETRY No school bus monitor available for pt. Dr Yang was notified
--- NOTE | 2020-07-24 02:59 | PC.NURSE ---
BATH/SKIN CARE Pt had dried brown liquid on legs when admitted. Skin to legs very dry and flakey. Hair with some matting and flakey dandruff. Redness and dry skin under abd folds. Was able to wash off some of dried brown on legs but not all would come off. Aides just gave pt a bath and shampoo and looks very good. Skin clean & lotioned well. Has purple/red discoloration to sacrum/buttocks. Repositioning q2h with Aloe [place] ointment to areas. Oral care with mouth swabs. Occ sx with yankeurs. Small amt secretions obtained. No gag reflex or response to any of care
[2020-07-24 04:00] VITALS: BP 80/54; PULSE 91; RESP 24; TEMP 36.9; O2SAT 80
[2020-07-24] MEDS: clindamycin 600 MG/50 ML PREMIX 100 MG IV (05:50)
--- NOTE | 2020-07-24 05:53 | PC.NURSE ---
SHIFT SUMMARY Has remained unresponsive since admission to floor. Has been repostitioned q2h. Does not open eyes to stimuli or react to pain. IV infusing at 100ml/r rate. called to check on pt and was given update on lower BP and O2 sat this am. He will be here this am.
--- NOTE | 2020-07-24 08:26 | PC.NURSE ---
verbal order given to pull propofol , i did an override and pulled med. they did not use med and it was put in the cabinet and locked. nurse had popped the lid and night nurse found the bottled and threw it away
[2020-07-24] MEDS: sodium chloride 0.9% 1,000 ML 100 ML IV (08:53)
[2020-07-24] MEDS: aspirin 300 mg Supp PR (09:42)
--- NOTE | 2020-07-24 10:56 | PM.DDS ---
Discharge Providers DDS Date of Admission: 07/23/20 17:14 Date Summary Completed: 07/24/20 Attending Provider at Admission: Kush Henriquez MD Time of : 10:55 Attending Provider at Discharge: Kush Henriquez MD Primary Care Provider: Ruben Rodriguez MD DS Diagnoses Hospital Diagnoses (1) Brainstem stroke: (2) New onset seizure: (3) Cystitis: (4) Acute diastolic (congestive) heart failure: Problem details: Possible mild acute diastolic CHF exacerbation. Present on admission (5) COPD (chronic obstructive pulmonary disease): (6) Hypertension: (7) Dyslipidemia: Reason for Visit Reason for Visit: AMS Summary Date and Time of Date of : 07/17/20 Time of : 10:55 Summary Summary: Deja Russell is a 79 year old female with a past medical history of hypertension, hyperlipidemia, hypothyroidism, heart failure, sleep apnea, who is dependent on her for activities of daily living, he tells me that he cooks and cleans for her, she ambulates with a walker, she uses a chair lift, she hardly gets out of the house, she is alert oriented x3, has been for over 60 years, she was recently here in the hospital back in April for CHF and pneumonia. Patient's states that this morning, they will have breakfast together, nothing out of the ordinary, no complaints, no complaints of chest pain, chest palpitations, no complaints of weakness, no fevers, cough, no lightheadedness, dizziness, no strokelike symptoms, no weakness, slurring of her speech, no facial droop,, no seizures. No history of strokes in the past. No history of seizures. He went out to get groceries, came back at roughly 10 or so in the morning, and she was sitting in her motorized scooter, snoring, not responsive, call , But she did not respond. He tells me that she is gazing to the right, not responding, so he called EMS. EMS arrived, and brought her to [facility]. Patient arrived was [facility] at roughly 2 PM, her last known normal was 9, her NIH stroke scale was 28, GCS was 3, I was told she was nonresponsive, requiring up to 10 L, she had a forced gaze palsy to the right, she had a witnessed seizure episode in the emergency room, lasting roughly a minute, given her labored breathing the ER physician discussed with patient's about intubation given her desaturations into the low 80s on 10 L, he advised that he wanted to make her DNR/DNI, did not want aggressive interventions. Upon my arrival to the emergency room, patient's NIH stroke scale was 20, GCS was 3, she has a gaze palsy to the right, is does not respond to sternal rub, does not withdraw from pain, is on 10 L, O2 sats do drop into the low 80s at times, she is snoring, she is flaccid, nonresponsive, Babinski is downward going bilaterally. CT of the head did not show any acute intracranial hemorrhage. CTA of the head and neck did not show any acute blockage. EKG shows deep T waves in inferior leads, no atrial fibrillation events. Her echocardiogram her last visit, April showed an EF of 50 to 55%, grade 1 diastolic dysfunction, mild to moderate aortic valve stenosis. Moderate pulmonary hypertension. Blood pressure is 119/110, sinus tachycardia, saturating in the high 80s on 10 L, mild retractions, nasal flaring. I discussed the case with Dr. Hogue, clinically it seems as if patient has had a large brainstem stroke, with global symptoms, and has had seizures. Unfortunate patient is out of TPA window, and there is no lesion that could be retrieved through endovascular retrieval. She agreed, I have discussed briefly with patient's family, patient's about hospice, Dr. Hogue who agrees that is very reasonable option. We can certainly try some medical interventions which are nonaggressive such as aspirin, statin, seizure medications, fluids. I had a extensive discussion with patient's unfortunately looks like she is had a large brainstem stroke, with seizures, the likelihood of her having a meaningful recovery is fairly unlikely. She is now on 10 L, having mild retractions,, in mild respiratory distress. He does not want aggressive interventions, he does not want her to be intubated, he does not want chest compressions. Above all he wants her to remain comfortable, he is okay with comfort care. He is okay with nonaggressive medical interventions such as fluids, aspirin, statin, seizure medications. Advised of risks and benefits of comfort care, voiced understanding, all questions answered agreed to proceed. Advised patient's that the goal of comfort care is to make her as comfortable as possible, easing her pain, easing her suffering. Patient was admitted to general medical floors, she was placed on comfort care orders, oxygen for comfort, Ativan, morphine atropine. I did also try Keppra for seizures, IV clindamycin for aspiration, aspirin, statin, IV fluids, blood pressure control. However the morning of 07/24/2020, was at bedside, patient was nonresponsive, aphasic, did not respond to sternal rub, gaze palsy to the right, in mild respiratory distress. Patient 07/24/2020 at 10:55 AM Additional Data Confirmation of as documented by pronouncing clinician: no pulse Family: at bedside Additional persons at bedside: nursing staff Attending/PCP notified?: Attending notified Was code activated?: No Autopsy requested?: No Advance directives?: Yes Hospice patient?: No Discharge Plan Discharge Patient Disposition: Condition: Prescriptions: No Action lisinopril 20 mg tablet 20 mg PO DAILY RF: 0 famotidine 20 mg tablet 20 mg PO BID RF: 0 rosuvastatin 10 mg tablet 10 mg PO DAILY RF: 0 multivitamin [Multiple Vitamins] Tablet 1 tab PO DAILY RF: 0 vitamin E 1,000 unit Capsule 1,000 unit PO DAILY RF: 0 cyanocobalamin (vitamin B-12) [Vitamin B-12] 1,000 mcg Tablet 1,000 mcg PO DAILY RF: 0 acetaminophen [Tylenol Arthritis Pain] 650 mg Tablet Extended Release 1,300 mg PO TID PRN (Reason: Pain) RF: 0 calcium carbonate [Calcium 500] 500 mg calcium (1,250 mg) Tablet 500 mg PO DAILY RF: 0 pyridoxine (vitamin B6) [Vitamin B-6] 100 mg Tablet 50 mg PO DAILY RF: 0 potassium chloride 20 mEq tablet extended release 20 meq PO DAILY Qty: 7 RF: 0 aspirin 81 mg Tablet,Delayed Release (Dr/Ec) 81 mg PO DAILY Qty: 30 RF: 0 levothyroxine [Synthroid] 200 mcg tablet 250 mcg PO DAILY Qty: 30 RF: 0 furosemide [Lasix] 20 mg tablet 40 mg PO DAILY Qty: 60 RF: 0 chlorthalidone 25 mg tablet 25 mg PO DAILY RF: 0 Referrals: Ruben Rodriguez MD [Primary Care Provider] - Patient Instructions: Self Care Measures After a Stroke (DC) DS Attestations Time Spent in /Discharge Care*: greater than 30 min Quality - AMI: AMI present?: No Quality - Stroke: CVA present?: Yes Quality - VTE: VTE present?: No Coding Level of Care Code Acute [employer] for [employer] Fwd Diagnoses Brainstem stroke I63.9 New onset seizure R56.9 Cystitis N30.90 Acute diastolic (congestive) heart failure I50.31 COPD (chronic obstructive pulmonary disease) J44.9 Hypertension I10 Dyslipidemia E78.5
--- NOTE | 2020-07-24 11:27 | PC.NURSE ---
1040. called to room stated he thought wasnt breathing. pt was taking occassional breath then stopped at 1046. verified with 2nd nurse bell ramsay rn. pt had no heart beat or respirations. dr marian hicks, charge nurse justin and nurse sup. hahn. was at bedside at passing and he signed paper then was heading home.
--- NOTE | 2020-07-24 11:36 | PC.NURSE ---
gallagher removed 10ml pulled from balloon.
--- NOTE | 2020-07-25 12:26 | PC.RESP ---
Pulmonary Rehab information sent to patient.
== END 2020-07-24 11:30 | disposition expired | DRG 64 ==
LOC: ER 16:44 → MEDSURG 18:20
PROVIDERS: Admitting Provider Family Medicine; Emergency Provider Family Medicine; PCP Family Medicine; Visit Provider Family Medicine
DX: I63.9 Cerebral infarction, unspecified (principal); I50.31 Acute diastolic (congestive) heart failure; E78.5 Hyperlipidemia, unspecified; J44.9 Chronic obstructive pulmonary disease, unspecified; N30.90 Cystitis, unspecified without hematuria; Z51.5 Encounter for palliative care; Z66 Do not resuscitate; I11.0 Hypertensive heart disease with heart failure; G40.909 Epilepsy, unspecified, not intractable, without status epilepticus; E03.9 Hypothyroidism, unspecified; G47.33 Obstructive sleep apnea (adult) (pediatric); R29.728 NIHSS score 28; Z79.82 Long term (current) use of aspirin; Z86.73 Personal history of transient ischemic attack (TIA), and cerebral infarction without residual deficits; Z87.11 Personal history of peptic ulcer disease; Z87.891 Personal history of nicotine dependence
CPT/HCPCS: 12345; 36415; 51702; 70450; 70496; 70498; 71045; 74177; 80053; 80306; 80307; 81001; 84484; 85025; 85610; 85730; 87086; 93005; 96372; 99283; J0696; J1650; J1953; J2060; J3490; J7030; Q9967